=== PATIENT | male | born 1960 | race Caucasian/White ===

== ENCOUNTER 2016-07-30 16:23 | Inpatient (IN) | payer SELFPAY ==
[2016-07-30] VITALS (8 sets, daily range): BP systolic 138–168; BP diastolic 65–100; PULSE 74–85; RESP 14–23; TEMP 97.9–98.3; O2SAT 26–100
[~2016-07-30] VITALS: Ht 180.3 cm; Wt 86.2 kg
[2016-07-30] MEDS ORDERED: SODIUM CHLOR 0.9% 1000 ML INJ 1,000 ML IV SCH ×2 (16:26→17:58)
[2016-07-30] MEDS ORDERED: SODIUM CHLORIDE 0.9% FLUSH 10 ML FLUSH IVF PRN (16:30)
[2016-07-30 16:35] LABS: AUTOMATED NEUTROPHIL # 4.7 TH/MM3 (1.8-7.7); BASOPHIL # 0.1 TH/MM3 (0-0.2); BASOPHIL % 0.8 % (0.0-2.0); EOSINOPHIL # 0.2 TH/MM3 (0-0.4); EOSINOPHIL % 2.6 % (0.0-4.0); HEMATOCRIT 45.4 % (39.0-51.0); HEMO FLAGS DIFF FINAL; LYMPH % 23.2 % (9.0-44.0); LYMPHOCYTE # 1.8 TH/MM3 (1.0-4.8); MEAN CELL VOLUME 87.2 FL (80.0-100.0); MEAN CORPUSCULAR HEMOGLOBIN 29.1 PG (27.0-34.0); MEAN CORPUSCULAR HGB CONC 33.3 % (32.0-36.0); MONO % 10.4 % (0.0-8.0); PLATELET COUNT 248 TH/MM3 (150-450); RED BLOOD COUNT 5.21 MIL/MM3 (4.50-5.90); RED CELL DISTRIBUTION WIDTH 11.6 % (11.6-17.2); WHITE BLOOD COUNT 7.6 TH/MM3 (4.0-11.0)
--- NOTE | 2016-07-30 16:37 | PD ---
HPI Chief Complaint: Altered Mental Status Time Seen by Provider: 16:26 Travel History International Travel<30 days: No Contact w/Intl Traveler<30days: No History of Present Illness HPI This is a 56-year-old male who presents to the emergency department having been found by a family member on the front lawn with some difficulty walking and moving his arm. Prior to him being found the most recently he was seen was 9: 30 this morning by a family member. She noticed that he was walking unsteadily so she helped him get into the garage. No one has seen him since then. The patient does have a history of heavy alcohol use. PFSH Past Medical History Arthritis: No Asthma: No Autoimmune Disease: No Blood Disorders: No Anxiety: No Depression: No Heart Rhythm Problems: No Cancer: No High Cholesterol: No Chemotherapy: No Chest Pain: Yes Congestive Heart Failure: No COPD: No Cerebrovascular Accident: No Diabetes: No Diminished Hearing: No GERD: Yes Glaucoma: No Headaches: Yes Hepatitis: Yes Hiatal Hernia: No Hypertension: No Kidney Stones: No Myocardial Infarction: Yes Radiation Therapy: No Renal Failure: No Seizures: Yes (ETOH) Sickle Cell Disease: No Sleep Apnea: No Thyroid Disease: No Ulcer: No Past Surgical History Abdominal Surgery: No AICD: No Cardiac Surgery: No Ear Surgery: No Endocrine Surgery: No Eye Surgery: No Genitourinary Surgery: No Gynecologic Surgery: No Oral Surgery: No Pacemaker: No Thoracic Surgery: No Social History Alcohol Use: Yes (beer case a day 02/06/04 am) Tobacco Use: Yes (nonfilter one pack a day last one before he got knocked out) Substance Use: Yes (DRINKS BEER. ) Allergies-Medications (Allergen,Severity, Reaction): Coded Allergies: No Known Allergies (Verified , 07/30/16) Reported Meds & Prescriptions Reported Meds & Active Scripts Active No Active Prescriptions or Reported Medications Review of Systems ROS Limitations: Speech Impaired Physical Exam Narrative GENERAL: Disheveled SKIN: Abrasions on the bilateral upper extremities HEAD: Atraumatic. Normocephalic. EYES: Pupils equal and round. No injection or drainage. ENT: Moist mucous membranes NECK: Trachea midline. CARDIOVASCULAR: Regular rate and rhythm. No murmur appreciated. RESPIRATORY: Clear to auscultation. Breath sounds equal bilaterally. GASTROINTESTINAL: Abdomen soft, non-tender, nondistended. MUSCULOSKELETAL: No obvious deformities. NEUROLOGICAL: Awake and alert. Left facial droop, left upper extremity weakness moving but not off the bed, able to move the left leg but not off the bed. Right sided gaze deviation with left-sided neglect. PSYCHIATRIC: Appropriate mood and affect; insight and judgment normal. Data Data Last Documented VS Vital Signs Date Time Temp Pulse Resp B/P Pulse Ox O2 Delivery O2 Flow Rate FiO2 07/30/16 17:00 81 18 149/94 97 Nasal Cannula 2 07/30/16 16:25 98.3 Orders Electrocardiogram (07/30/16 16:26) Complete Blood Count With Diff (07/30/16 16:26) Comprehensive Metabolic Panel (07/30/16 16:26) Prothrombin Time / Inr (Pt) (07/30/16 16:26) Act Partial Throm Time (Ptt) (07/30/16 16:26) Troponin I (07/30/16 16:26) Urinalysis - C+S If Indicated (07/30/16 16:26) Ct Brain W/O Iv Contrast(Rout) (07/30/16 16:26) Blood Glucose (07/30/16 16:26) Ecg Monitoring (07/30/16 16:26) Iv Access Insert/Monitor (07/30/16 16:26) Oximetry (07/30/16 16:26) Sodium Chloride 0.9% Flush (Ns Flush) (07/30/16 16:30) Sodium Chlor 0.9% 1000 Ml Inj (Ns 1000 M (07/30/16 16:26) Drug Screen, Random Urine (07/30/16 16:26) Alcohol (Ethanol) (07/30/16 16:26) Ct Cerv Spine W/O Contrast (07/30/16 ) Mri Brain W/O Contrast (07/30/16 ) Mra Brain W/O Contrast (Cow) (07/30/16 17:12) Mra Carotids W Contrast (07/30/16 17:12) Admit Order (Ed Use Only) (07/30/16 17:20) Labs Laboratory Tests Test 07/30/16 07/30/16 16:20 16:55 White Blood Count 7.6 TH/MM3 Red Blood Count 5.21 MIL/MM3 Hemoglobin 15.1 GM/DL Hematocrit 45.4 % Mean Corpuscular Volume 87.2 FL Mean Corpuscular Hemoglobin 29.1 PG Mean Corpuscular Hemoglobin 33.3 % Concent Red Cell Distribution Width 11.6 % Platelet Count 248 TH/MM3 Mean Platelet Volume 8.0 FL Neutrophils (%) (Auto) 63.0 % Lymphocytes (%) (Auto) 23.2 % Monocytes (%) (Auto) 10.4 % Eosinophils (%) (Auto) 2.6 % Basophils (%) (Auto) 0.8 % Neutrophils # (Auto) 4.7 TH/MM3 Lymphocytes # (Auto) 1.8 TH/MM3 Monocytes # (Auto) 0.8 TH/MM3 Eosinophils # (Auto) 0.2 TH/MM3 Basophils # (Auto) 0.1 TH/MM3 CBC Comment DIFF FINAL Differential Comment Prothrombin Time 12.2 SEC Prothromb Time International 1.1 RATIO Ratio Activated Partial 29.6 SEC Thromboplast Time Sodium Level 136 MEQ/L Potassium Level 4.1 MEQ/L Chloride Level 102 MEQ/L Carbon Dioxide Level 27.1 MEQ/L Anion Gap 7 MEQ/L Blood Urea Nitrogen 11 MG/DL Creatinine 0.93 MG/DL Estimat Glomerular Filtration 84 ML/MIN Rate Random Glucose 124 MG/DL Calcium Level 9.1 MG/DL Total Bilirubin 0.3 MG/DL Aspartate Amino Transf 15 U/L (AST/SGOT) Alanine Aminotransferase 24 U/L (ALT/SGPT) Alkaline Phosphatase 59 U/L Troponin I LESS THAN 0.02 NG/ML Total Protein 7.7 GM/DL Albumin 3.7 GM/DL Ethyl Alcohol Level LESS THAN 3 MG/DL Urine Color YELLOW Urine Turbidity CLEAR Urine pH 6.0 Urine Specific [place] 1.018 Urine Protein NEG mg/dL Urine Glucose (UA) NEG mg/dL Urine Ketones NEG mg/dL Urine Occult Blood NEG Urine Nitrite NEG Urine Bilirubin NEG Urine Leukocyte Esterase NEG Urine WBC 0-2 /hpf Urine Squamous Epithelial 0-5 /hpf Cells Microscopic Urinalysis Comment CATH-CULT NOT IND Urine Opiates Screen NEG Urine Barbiturates Screen NEG Urine Amphetamines Screen NEG Urine Benzodiazepines Screen NEG Urine Cocaine Screen NEG Urine Cannabinoids Screen NEG MDM Medical Decision Making Medical Screen Exam Complete: Yes Emergency Medical Condition: Yes Interpretation(s) Afebrile, no tachycardia, hypertensive No leukocytosis Electrolytes are reassuring Troponin is normal Alcohols negative Urine drug screen is negative Urinalysis is negative for infection Last [address] 07/30/16 1626 Signed Impressions: Service Date/Time: July 16:23 - CONCLUSION: 1. The total abnormality which may reflect thrombosed vessel, localized subarachnoid hemorrhage or artifact in the posterior right temporal region. MRI is recommended for further evaluation if clinically indicated. Min Vera MD Cervical Spine CT 07/30/16 0000 Signed Impressions: Service Date/Time: July 16:23 - CONCLUSION: Mild cervical kyphosis with degenerative disc disease at multiple levels, most severe at C6-C7. No acute cervical spine abnormality is identified. Juan Diego Barbour MD Differential Diagnosis Ischemic stroke, hemorrhagic stroke, subdural hematoma, epidural hematoma, seizure, tumor Narrative Course This is a 56-year-old male who presents to the emergency department with left- sided weakness and left-sided neglect. It's unclear when he was last seen normal as he was seen this morning at 9:30 AM but at that time he was unsteady on his feet. Patient has a history of alcoholism. He was placed on a monitor and an IV was established. He was emergently transported to CT where he was found to have no intracranial hemorrhage. He does have an abnormality which I suspect is a thrombosed vessel. He is not a TPA candidate given the time of onset of his symptoms. Labs are all reassuring. Patient will be admitted for MRI and neurology consultation. I did speak to Dr. Lewis and inform her of the patient. Physician Communication Physician Communication Discussed with Dr. Zhao and Dr. Lewis Diagnosis Primary Impression: Stroke Qualified Code: I63.9 - Cerebrovascular accident (CVA), unspecified mechanism Admitting Information Admitting Physician Requests: Admit Scripts No Active Prescriptions or Reported Meds Mitra Meyers MD Jul 30, 2016 16:37
[2016-07-30 16:44] LABS: CHLORIDE 102 MEQ/L (98-107); POTASSIUM 4.1 MEQ/L (3.5-5.1); SODIUM (NA) 136 MEQ/L (136-145)
--- NOTE | 2016-07-30 16:46 | RADHPO ---
EXAM DATE/TIME: 07/30/2016 16:23 [facility] COMPARISON: No previous studies available for comparison. INDICATIONS : Altered mental status. Found unresponsive. RADIATION DOSE: 67.90 CTDIvol (mGy) MEDICAL HISTORY : Non-responsive. SURGICAL HISTORY : Non-responsive. ENCOUNTER: Initial ACUITY: 1 day PAIN SCALE: Non-responsive LOCATION: cranial TECHNIQUE: Multiple contiguous axial images were obtained of the head. Using automated exposure control and adj ustment of the mA and/or kV according to patient size, radiation dose was kept as low as reasonably a chievable to obtain optimal diagnostic quality images. FINDINGS: Noncontrast axial head CT demonstrates the ventricles to be normal in size and configuration with a n ormal sulcal pattern. No acute intracranial hemorrhage, acute cortical infarction, mass or midline sh ift is seen. There is old lacunar infarct involving the right basal ganglia. There is linear density just nature the right lateral ventricle of uncertain etiology. Whether this reflects a thrombosed ves wendi, localized subarachnoid hemorrhage or is artifactual is uncertain. MRI is recommended for further evaluation if clinically indicated. Posterior fossa structures are unremarkable. Bone windows are unremarkable. CONCLUSION: 1. The total abnormality which may reflect thrombosed vessel, localized subarachnoid hemorrhage or ar tifact in the posterior right temporal region. MRI is recommended for further evaluation if clinicall y indicated. Min Vera MD on July 30, 2016 at 16:40 Board Certified Radiologist. This report was verified electronically.
[2016-07-30 16:47] LABS: ANION GAP 7 MEQ/L (5-15); BICARBONATE 27.1 MEQ/L (21.0-32.0)
[2016-07-30 16:48] LABS: BLOOD UREA NITROGEN 11 MG/DL (7-18)
[2016-07-30 16:49] LABS: APTT (PATIENT) 29.6 SEC (24.3-30.1); INTERNATIONAL NORMALIZED RATIO 1.1 RATIO; PROTHROMBIN TIME - PATIENT 12.2 SEC (9.8-11.6)
[2016-07-30 16:50] LABS: ALT (GPT) 24 U/L (12-78); AST (GOT) 15 U/L (15-37)
[2016-07-30 16:51] LABS: GLOMERULAR FILTRATION RATE 84 ML/MIN (>89)
[2016-07-30 16:52] LABS: TOTAL BILIRUBIN ADULT 0.3 MG/DL (0.2-1.0)
[2016-07-30 16:53] LABS: ALKALINE PHOSPHATASE 59 U/L (45-117)
--- NOTE | 2016-07-30 16:53 | RADHPO ---
EXAM DATE/TIME: 07/30/2016 16:23 [facility] COMPARISON: No previous studies available for comparison. INDICATIONS : Altered mental status. Found unresponsive. RADIATION DOSE: 26.61 CTDIvol (mGy) MEDICAL HISTORY : Non-responsive. SURGICAL HISTORY : Non-responsive. ENCOUNTER: Initial ACUITY: 1 day PAIN SCALE: Non-responsive LOCATION: neck TECHNIQUE: Volumetric scanning of the cervical spine was performed. Multiplanar reconstructions in the sagittal, coronal and oblique axial planes were performed. Using automated exposure control and adjustment o f the mA and/or kV according to patient size, radiation dose was kept as low as reasonably achievable to obtain optimal diagnostic quality images. FINDINGS: VERTEBRAE: There is mild cervical kyphosis. No fracture is identified. ALIGNMENT: There is no anterolisthesis or retrolisthesis. The craniocervical junction and C1-C2 level demonstrate no acute finding. C2-C3: No disc herniation, canal stenosis, or neural foraminal stenosis is present. C3-C4: There is a mild diffuse disc bulge. However, no canal stenosis or neural foraminal narrowing is ident ified. C4-C5: There is a small posterior disc osteophyte complex, largest in left paracentral location. No canal st enosis or neural foraminal narrowing is appreciated. C5-C6: There is a diffuse posterior disc osteophyte complex. No spinal canal stenosis or neural foraminal na rrowing is identified. C6-C7: There is decreased disc height with endplate sclerosis and anterior endplate osteophytes. There are s mall posterior disc osteophyte complexes diffusely. No canal narrowing or neural foraminal narrowing is appreciated. C7-T1: No disc herniation, canal stenosis, or neural foraminal narrowing is identified. The visualized paraspinous structures demonstrate no acute finding. CONCLUSION: Mild cervical kyphosis with degenerative disc disease at multiple levels, most severe at C6-C7. No ac sumeet cervical spine abnormality is identified. Juan Diego Barbour MD on July 30, 2016 at 16:47 Board Certified Radiologist. This report was verified electronically.
[2016-07-30 17:10] LABS: BLOOD, URINE NEG (NEG); GLUCOSE,URINE NEG (NEG); KETONE, URINE NEG (NEG); NITRITE,URINE NEG (NEG)
[2016-07-30 17:17] LABS: AMPHETAMINE, URINE NEG (NEG); COMMENT (UR) CATH-CULT NOT IND; CULTURE IF INDICATED CATH CULTURE NOT IND; SQUAMOUS EPITHELIAL CELL URINE 0-5 /hpf (0-5); URINE COLOR YELLOW (YELLW/STRAW); WBC, URINE 0-2 /hpf (0-5)
[2016-07-30 17:26] LABS: BARBITURATES, URINE NEG (NEG)
[2016-07-30 17:29] LABS: COCAINE, URINE NEG (NEG)
--- NOTE | 2016-07-30 17:42 | HHI.HP ---
[facility] Primary Care Physician No Primary Care Physician Admission Diagnosis stroke Diagnoses: (1) Acute CVA (cerebrovascular accident) (2) Benign hypertension (3) Tobacco abuse counseling (4) Tobacco abuse (5) Alcohol abuse Chief Complaint: Alter mental status change Travel History International Travel<30 Days: No Contact w/Intl Traveler <30 Da: No Traveled to Known Affected Are: No History of Present Illness 56-year-old male with a history of alcohol abuse, tobacco abuse was brought to the ED for evaluation of acute onset of altered mental status change. Apparently patient was well this morning around 9:30AM , however when he was seen around 3PM by his friend ; he was staggering with an unsteady gait and speaking with some slurring of the speech. The last time patient had a drink was 2 days ago, however he has a history of alcohol abuse. He brought to the ED for AMS, however CT Head reveal The total abnormality which may reflect thrombosed vessel, localized subarachnoid hemorrhage or artifact in the posterior right temporal region. On exam he had a left-sided neglect. During my exam, patient was alert and oriented to self able to give his date of however with slurred speech. Most of the history was obtained from his friend who was present during the entire encounter Review of Systems ROS Limitations: Speech Impaired Other 12 systems reviewed and are negative except for the one mentioned in the history of present illness Past Family Social History Past Medical History GERD: Yes Headaches: Yes Hepatitis: Yes Myocardial Infarction: Yes Seizures: Yes (ETOH) Past Surgical History Abdominal Surgery: No AICD: No Cardiac Surgery: No Ear Surgery: No Endocrine Surgery: No Eye Surgery: No Genitourinary Surgery: No Gynecologic Surgery: No Oral Surgery: No Pacemaker: No Thoracic Surgery: No Reported Medications No Active Prescriptions or Reported Medications Allergies: Coded Allergies: No Known Allergies (Verified , 07/30/16) Social History Alcohol Use: Yes (beer case a day 02/06/04 am) Tobacco Use: Yes (nonfilter one pack a day last one before he got knocked out) Substance Use: Yes (DRINKS BEER. ) Physical Exam Vital Signs Vital Signs Date Time Temp Pulse Resp B/P Pulse Ox O2 Delivery O2 Flow Rate FiO2 07/30/16 17:35 97 Nasal Cannula 2 07/30/16 17:00 81 18 149/94 97 Nasal Cannula 2 07/30/16 16:25 98.3 85 18 143/86 96 07/30/16 16:25 85 18 96 Room Air Physical Exam GENERAL: NAD with sided neglect SKIN: No rashes, ecchymoses or lesions. Cool and dry. HEAD: Atraumatic. Normocephalic. No temporal or scalp tenderness. EYES: Pupils equal round and reactive. Extraocular motions intact. No scleral icterus. No injection or drainage. ENT: Nose without bleeding, purulent drainage or septal hematoma. Throat without erythema, tonsillar hypertrophy or exudate. Uvula midline. Airway patent. NECK: Trachea midline. No JVD or lymphadenopathy. Supple, nontender, no meningeal signs. CARDIOVASCULAR: Regular rate and rhythm without murmurs, gallops, or rubs. RESPIRATORY: Clear to auscultation. Breath sounds equal bilaterally. No wheezes , rales, or rhonchi. GASTROINTESTINAL: Abdomen soft, non-tender, nondistended. No hepato-splenomegaly , or palpable masses. No guarding. MUSCULOSKELETAL: Extremities without clubbing, cyanosis, or edema. Left sided neglect NEUROLOGICAL: left sided neglect with slurred speech Laboratory Laboratory Tests Test 07/30/16 07/30/16 16:20 16:55 White Blood Count 7.6 Red Blood Count 5.21 Hemoglobin 15.1 Hematocrit 45.4 Mean Corpuscular Volume 87.2 Mean Corpuscular Hemoglobin 29.1 Mean Corpuscular Hemoglobin 33.3 Concent Red Cell Distribution Width 11.6 Platelet Count 248 Mean Platelet Volume 8.0 Neutrophils (%) (Auto) 63.0 Lymphocytes (%) (Auto) 23.2 Monocytes (%) (Auto) 10.4 Eosinophils (%) (Auto) 2.6 Basophils (%) (Auto) 0.8 Neutrophils # (Auto) 4.7 Lymphocytes # (Auto) 1.8 Monocytes # (Auto) 0.8 Eosinophils # (Auto) 0.2 Basophils # (Auto) 0.1 CBC Comment DIFF FINAL Differential Comment Prothrombin Time 12.2 Prothromb Time International 1.1 Ratio Activated Partial 29.6 Thromboplast Time Sodium Level 136 Potassium Level 4.1 Chloride Level 102 Carbon Dioxide Level 27.1 Anion Gap 7 Blood Urea Nitrogen 11 Creatinine 0.93 Estimat Glomerular Filtration 84 Rate Random Glucose 124 Calcium Level 9.1 Total Bilirubin 0.3 Aspartate Amino Transf 15 (AST/SGOT) Alanine Aminotransferase 24 (ALT/SGPT) Alkaline Phosphatase 59 Troponin I LESS THAN 0.02 Total Protein 7.7 Albumin 3.7 Ethyl Alcohol Level LESS THAN 3 Urine Color YELLOW Urine Turbidity CLEAR Urine pH 6.0 Urine Specific [place] 1.018 Urine Protein NEG Urine Glucose (UA) NEG Urine Ketones NEG Urine Occult Blood NEG Urine Nitrite NEG Urine Bilirubin NEG Urine Leukocyte Esterase NEG Urine WBC 0-2 Urine Squamous Epithelial 0-5 Cells Microscopic Urinalysis Comment CATH-CULT NOT IND Urine Barbiturates Screen NEG Urine Amphetamines Screen NEG Urine Benzodiazepines Screen NEG Urine Cocaine Screen NEG Urine Cannabinoids Screen NEG Result Diagram: 07/30/16 1620 07/30/16 1620 Imaging Last Impressions Head CT 07/30/16 1626 Signed Impressions: Service Date/Time: July 16:23 - CONCLUSION: 1. The total abnormality which may reflect thrombosed vessel, localized subarachnoid hemorrhage or artifact in the posterior right temporal region. MRI is recommended for further evaluation if clinically indicated. Min Vera MD Cervical Spine CT 07/30/16 0000 Signed Impressions: Service Date/Time: July 16:23 - CONCLUSION: Mild cervical kyphosis with degenerative disc disease at multiple levels, most severe at C6-C7. No acute cervical spine abnormality is identified. Juan Diego Barbour MD Assessment and Plan Problem List: (1) Acute right MCA stroke ICD Code: I63.511 Status: Acute (2) Acute left hemiparesis ICD Code: G81.94 Status: Acute (3) Acute CVA (cerebrovascular accident) ICD Code: I63.9 Status: Acute (4) Tobacco abuse counseling ICD Code: Z71.6 Status: Acute (5) Alcohol abuse ICD Code: F10.10 Status: Acute (6) Tobacco abuse ICD Code: Z72.0 Status: Acute (7) Left-sided neglect ICD Code: R41.4 Status: Acute Assessment and Plan 56-year-old man with Acute CVA with left sided neglect: Treatment per stroke protocol -Continue with aspirin -Start statin therapy -NIHSS, Neuro checks, Monitor on telemetry -PT/OT/ST evaluations, consult rehab medicine -allow permissive HTN, IV Vasotec and IV labetalol if SBP >220 -Check lipid profile and HgbA1c -Check carotid U/S -Head CT 07/30/16 noted and review by me with finding of The total abnormality which may reflect thrombosed vessel, localized subarachnoid hemorrhage or artifact in the posterior right temporal region -Check brain MRI/MRA -Check echocardiogram and place Holter monitoring -Neurology consulted History of hypertension: We will allow for permissive hypertension Nicotinic dependence: Counseled to quit, place nicotine patch alcohol Abuse: Rally Pack, CIWA per protocol, Librium PRN DVT prophylaxis: Bilateral SCDs GI prophylaxis: PPI Code Status Full code Discussed Condition With Patient, friend, ED physician Physician Certification 2 Midnight Certification Type: Admission for Inpatient Services Order for Inpatient Services The services are ordered in accordance with Medicare regulations or non- Medicare payer requirements, as applicable. In the case of services not specified as inpatient-only, they are appropriately provided as inpatient services in accordance with the 2-midnight benchmark. Estimated LOS (days): 2 days is the estimated time the patient will need to remain in the hospital, assuming treatment plan goals are met and no additional complications. Post-Hospital Plan: Not yet determined Addison Zhao MD Jul 30, 2016 17:42
[2016-07-30] MEDS ORDERED: LORazepam 1 MG TAB PO PRN (18:00)
[2016-07-30] MEDS ORDERED: LORazepam 2 MG TAB PO PRN (18:00)
[2016-07-30] MEDS ORDERED: DEXTROSE 50% IN WATER 50 ML VIAL(D50) IV PUSH PRN (18:00)
[2016-07-30] MEDS ORDERED: FLUMAZENIL 0.5 MG/5 ML VIAL IV PUSH PRN (18:00)
[2016-07-30] MEDS ORDERED: LORazepam 2 MG/ML VIAL IV PUSH PRN ×4 (18:00)
[2016-07-30] MEDS ORDERED: ONDANSETRON HCL 4 MG/2 ML VIAL IV PRN (18:00)
[2016-07-30] MEDS ORDERED: RESP: ALBUTEROL 2.5 MG/IPRATROPIUM 0.5 MG NEB (PRN) NEB (18:00)
[2016-07-30] MEDS ORDERED: SODIUM CHLORIDE 0.9% FLUSH 10 ML FLUSH IV FLUSH PRN (18:00)
[2016-07-30] MEDS ORDERED: GLUCAGON 1 MG/ML VIAL IM/SQ PRN (18:00)
[2016-07-30] MEDS ORDERED: ENALAPRILAT 1.25 MG/ML VIAL IV PRN (18:00)
[2016-07-30] MEDS ORDERED: ASPIRIN 300 MG SUPP RECTAL ONE (18:15)
--- NOTE | 2016-07-30 19:23 | RADHPO ---
EXAM DATE/TIME: 07/30/2016 18:10 [facility] COMPARISON: CT BRAIN W/O CONTRAST, July 30, 2016, 16:23. INDICATIONS : Stroke. MEDICAL HISTORY : None. SURGICAL HISTORY : None. ENCOUNTER: Subsequent ACUITY: 1 day PAIN SCORE: 5/10 LOCATION: cranial TECHNIQUE: Multiplanar, multisequence MRI of the brain was performed without contrast. FINDINGS: There is restriction in diffusion capacity involving the right temporal lobe diffusely in additi on to right periventricular region in the region of the basal ganglia. There is no hemorrhage or mass effect. CONCLUSION: Acute infarction in the right temporal and periventricular regions involving parts of the basal gangl ia. No hemorrhage or mass effect. Sarah Mcintosh MD on July 30, 2016 at 19:18 Board Certified Radiologist. This report was verified electronically.
--- NOTE | 2016-07-30 19:31 | RADHPO ---
EXAM DATE/TIME: 07/30/2016 18:10 [facility] COMPARISON: MRI BRAIN W/O CONTRAST, July 30, 2016, 18:10. INDICATIONS : Stroke. MEDICAL HISTORY : None. SURGICAL HISTORY : None. ENCOUNTER: Subsequent ACUITY: 1 day PAIN SCORE: 5/10 LOCATION: cranial Please note a normal MRA of the brain does not entirely exclude the possibility of a small aneurysm, nor the possibility of distal intracranial vessel disease. TECHNIQUE: 3D time of flight MRA was performed. Source images, multiplanar STS MIP, and 3D volume MIP reconstru ctions were reviewed. FINDINGS: There is evidence of truncation involving the right M1 characteristic of acute thrombus. There is ath erosclerotic disease involving multiple branches bilaterally with high-grade stenosis of right PUNCH CARD OPERATOR. L eft A-1 appears hypoplastic. CONCLUSION: Complete occlusion of right M1 due to acute thrombus with high-grade stenosis of right PUNCH CARD OPERATOR. Sarah Mcintosh MD on July 30, 2016 at 19:27 Board Certified Radiologist. This report was verified electronically.
--- NOTE | 2016-07-30 20:12 | RADHPO ---
EXAM DATE/TIME: 07/30/2016 19:09 [facility] COMPARISON: MRA BRAIN W/O CONTRAST, July 30, 2016, 18:10. INDICATIONS : Stroke. CONTRAST: 20 cc Omniscan (gadodiamide) IV MEDICAL HISTORY : None. SURGICAL HISTORY : None. ENCOUNTER: Subsequent ACUITY: 1 day PAIN SCORE: 5/10 LOCATION: cranial Percent stenosis is calculated using the diameter of the stenotic region over the diameter of the nor mal distal internal carotid artery. TECHNIQUE: Bolus infused MRA of the extracranial circulation was performed using a neurovascular coil. Post pro cessing was performed including rotating subvolume maximum intensity projections of each carotid gretchen ry, rotating full volume maximum intensity projections of both carotid arteries, sagittal and coronal sliding thin slab reformations of each carotid artery, and left oblique sliding thin slab reformatio n through the aortic arch to include the origin of the arch branch vessels. FINDINGS: AORTIC ARCH: There is a three vessel origin of the great vessels from the aorta. No evidence of ostial narrowing. RIGHT CAROTID: There is mild atherosclerotic plaquing at the origin of the ICA without any significant stenosis. LEFT CAROTID: There is mild atherosclerotic plaquing at the origin of the ICA without any significant stenosis. VERTEBRALS: The left side is dominant and the right side is hypoplastic. 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 Sarah Mcintosh MD on July 30, 2016 at 20:07 Board Certified Radiologist. This report was verified electronically.
[2016-07-30] MEDS ORDERED: GADODIAMIDE PF 287 MG/ML 20 ML VIAL (for RAD MRI) IV ONE (20:34)
[2016-07-30] MEDS ORDERED: SODIUM CHLORIDE 0.9% FLUSH 10 ML FLUSH IV FLUSH SCH (21:00)
[2016-07-30] MEDS: INSULIN ASPART SUPPLEMENTAL SCALE SQ SCH (21:00)
[2016-07-30] MEDS: REMOVE OLD PATCH T-DERMAL SCH (21:00)
[2016-07-30 22:30] LABS: HEMOGLOBIN A1a 1.1 %; HEMOGLOBIN A1b 0.7 %; HEMOGLOBIN Ao 84.8 %; HEMOGLOBIN LA1C 2.3 %; HEMOGLOBIN P3 3.7 %
[2016-07-30] MEDS: NICOTINE 21 MG/24 HR PATCH T-DERMAL SCH (22:30)
[2016-07-30] MEDS: ACETAMINOPHEN 325 MG TAB PO PRN (22:48)
[2016-07-30] MEDS: ATORVASTATIN 10 MG TAB PO SCH (22:48)
[2016-07-31] VITALS (8 sets, daily range): BP systolic 114–163; BP diastolic 70–95; PULSE 70–94; RESP 12–20; TEMP 98.2–99; O2SAT 93–97
--- NOTE | 2016-07-31 06:05 | EKG ---
Date Performed: 07/30/2016 Time Performed: 16:43:26 PTAGE: 56 years EKG: Sinus rhythm Normal ECG NO PREVIOUS TRACING DOCTOR: Blane Lao Interpretating Date/Time 07/31/2016 06:04:20
[2016-07-31] MEDS: INSULIN ASPART SUPPLEMENTAL SCALE SQ SCH ×4 (06:22→20:55)
[2016-07-31] MEDS ORDERED: GLUCAGON 1 MG/ML VIAL IM/SQ PRN (09:00)
[2016-07-31] MEDS ORDERED: ASPIRIN 325 MG TAB PO SCH (09:00)
[2016-07-31] MEDS ORDERED: ASPIRIN 81 MG CHEW TAB PO SCH (09:00)
[2016-07-31] MEDS ORDERED: DEXTROSE 50% IN WATER 50 ML VIAL(D50) IV PUSH PRN (09:00)
[2016-07-31] MEDS ORDERED: SODIUM CHLORIDE 0.9% FLUSH 10 ML FLUSH IV FLUSH PRN (09:00)
--- NOTE | 2016-07-31 09:23 | MB ---
cc: BULMARO CAST M.D. DATE OF CONSULTATION: 07/31/2016 REASON FOR CONSULTATION Stroke. HISTORY OF PRESENT ILLNESS Mr. Venegas is a 56-year-old right-handed man with a history of alcohol abuse who was in his usual state of health until yesterday. He was last seen normal yesterday around 9:30 in the morning. He was then again seen at 3 o'clock in the afternoon by his friend, very confused with a staggering gait and slurred speech and was brought to the emergency room. Because of the indeterminate time of onset he was not a candidate for thrombolytic therapy or intervention. He has been found to have left-sided neglect with some left-sided weakness and slurred speech. PAST MEDICAL HISTORY No history of stroke in the past but he did have a history of alcohol-related seizures, alcohol abuse in the past. MEDICATIONS Medicines at home are none. ALLERGIES None known. SOCIAL HISTORY He drinks a case of beer every day. He does smoke. There is no listed history of drug abuse. NEUROLOGIC EXAMINATION His vital signs reveal a blood pressure of 141/83, pulse 76 and regular. His telemetry is normal sinus rhythm. Respiratory rate is 19. Temperature 98 degrees. Higher cortical function: He is lethargic but arousable. He can follow simple commands. Speech is dysarthric but not aphasic. He has left-sided neglect. 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 He tends to have a right gaze preference but is able to move eyes past midline to the left. Pupils equal and reactive. Other cranial nerves normal. Motor exam: He is weak in the left arm and left leg rated at 4/5 proximally and distally with normal strength on the right. Reflexes are 2+ symmetric with Babinski on the left. IMAGING CT scan of the brain shows a linear hyperdensity in the right lateral ventricle, uncertain etiology. Old lacunar stroke is seen in the right basal ganglia. MRI of the brain shows an acute infarction without hemorrhage involving the right temporal and periventricular regions and basal ganglia in the distribution of the right MCA. MR angiogram of the head reveals complete occlusion of the right M1 segment. MRA of the neck reveals no evidence of any significant carotid artery stenosis. There is mild plaquing. He has a hypoplastic right vertebral artery. CT cervical spine: Mild kyphosis with degenerative disc disease, most severe C6-C7. LABORATORY White count 7600, hemoglobin 15.1, hematocrit 45%, platelets 248,000. PT 12.2, INR 1.1, APTT 30. Sodium 136, potassium 4.1, chloride 102, CO2 27, BUN 11, creatinine 0.9, GFR 84, glucose 124, AST 15, ALT 24. Lipid panel pending. Toxicology screen negative. Urinalysis is normal. EKG EKG is sinus rhythm. 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 RECOMMENDATIONS Continue aspirin. Will change that to 325 mg daily. He did pass a swallow eval. Continue to monitor his cardiac telemetry, rule out atrial fibrillation. Follow-up on a lipid panel. Will also obtain an echocardiogram. I would like to get a hypercoagulable work-up because of his relative young age. Consult rehab medicine as well. I agree that the patient was not a candidate for TPA given the time of onset and also not a candidate for intervention given the indeterminate time of onset and duration of symptoms. Thank you for asking us to see this patient in consultation. MD CATHY Kline/TAWNY /8:46 AM /9:10 AM
[2016-07-31 09:39] LABS: HDL CHOLESTEROL 26.6 MG/DL (40.0-60.0)
--- NOTE | 2016-07-31 09:43 | HHI.PR ---
Subjective Remarks Follow-up acute right MCA CVA with left-sided neglect 07/31/16-patient seen and examined, he did past swallow eval.Lethargic this AM however arousable. Currently afebrile Objective Vitals Vital Signs Date Time Temp Pulse Resp B/P Pulse Ox O2 Delivery O2 Flow Rate FiO2 07/31/16 08:00 95 Nasal Cannula 2.00 07/31/16 08:00 94 07/31/16 07:57 97 Nasal Cannula 2.00 07/31/16 04:00 76 19 141/83 95 07/31/16 00:00 98.4 70 17 132/70 97 07/30/16 23:38 20 07/30/16 23:00 79 07/30/16 23:00 74 18 138/83 97 07/30/16 22:37 80 23 168/89 98 07/30/16 22:35 97.9 82 22 161/100 26 07/30/16 22:03 95 Nasal Cannula 2.00 07/30/16 20:08 74 14 151/65 99 Nasal Cannula 2 07/30/16 20:05 100 Nasal Cannula 4.00 07/30/16 18:17 97 Nasal Cannula 2.00 07/30/16 17:35 97 Nasal Cannula 2 07/30/16 17:00 81 18 149/94 97 Nasal Cannula 2 07/30/16 16:25 98.3 85 18 143/86 96 07/30/16 16:25 85 18 96 Room Air I/O 07/30/16 07/30/16 07/30/16 07/31/16 07/31/16 07/31/16 07:00 15:00 23:00 07:00 15:00 23:00 Intake Total 1030 ml 521 ml Output Total 300 ml 350 ml Balance 730 ml 171 ml Intake Oral 30 ml 0 ml IV Total 1000 ml 521 ml Output Urine Total 300 ml 350 ml # Voids 2 # Bowel Movements 0 0 Result Diagram: 07/30/16 1620 07/30/16 162 Imaging Last Impressions Neck Magnetic Resonance Angiography 07/30/16 171 Signed Impressions: Service Date/Time: July 19:09 - CONCLUSION: Hypoplastic right vertebral artery and slight atherosclerotic plaquing of bilateral ICAs. 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 Sarah Mcintosh MD Head CT 07/30/16 1626 Signed Impressions: Service Date/Time: July 16:23 - CONCLUSION: 1. The total abnormality which may reflect thrombosed vessel, localized subarachnoid hemorrhage or artifact in the posterior right temporal region. MRI is recommended for further evaluation if clinically indicated. Min Vera MD Cervical Spine CT 07/30/16 0000 Signed Impressions: Service Date/Time: July 16:23 - CONCLUSION: Mild cervical kyphosis with degenerative disc disease at multiple levels, most severe at C6-C7. No acute cervical spine abnormality is identified. Juan Diego Barbour MD Brain MRI 07/30/16 0000 Signed Impressions: Service Date/Time: July 18:10 - CONCLUSION: Acute infarction in the right temporal and periventricular regions involving parts of the basal ganglia. No hemorrhage or mass effect. Sarah Mcintosh MD Objective Remarks GENERAL: [id number] SKIN: Warm and dry. HEAD: Normocephalic. EYES: No scleral icterus. No injection or drainage. NECK: Supple, trachea midline. No JVD or lymphadenopathy. CARDIOVASCULAR: Regular rate and rhythm without murmurs, gallops, or rubs. RESPIRATORY: Breath sounds equal bilaterally. No accessory muscle use. GASTROINTESTINAL: Abdomen soft, non-tender, nondistended. MUSCULOSKELETAL: No cyanosis, or edema. Neuro: Left-sided hemiparesis with left-side neglect BACK: Nontender without obvious deformity. No CVA tenderness. A/P Problem List: (1) Acute CVA (cerebrovascular accident) ICD Code: I63.9 Status: Acute (2) Benign hypertension ICD Code: I10 Status: Acute (3) Tobacco abuse counseling ICD Code: Z71.6 Status: Acute (4) Tobacco abuse ICD Code: Z72.0 Status: Acute (5) Alcohol abuse ICD Code: F10.10 Status: Acute (6) Acute right MCA stroke ICD Code: I63.511 Status: Acute (7) Acute left hemiparesis ICD Code: G81.94 Status: Acute (8) Left-sided neglect ICD Code: R41.4 Status: Acute Assessment and Plan 56-year-old man with Acute CVA with left sided neglect: Treatment per stroke protocol -Continue with aspirin -On statin therapy -NIHSS, Neuro checks, Monitor on telemetry -PT/OT/ST evaluations, consult rehab medicine -allow permissive HTN, IV Vasotec and IV labetalol if SBP >220 - lipid profile and HgbA1c -Check carotid U/S -Head CT 07/30/16 with finding of The total abnormality which may reflect thrombosed vessel, localized subarachnoid hemorrhage or artifact in the posterior right temporal region - brain MRI/MRA as well as neck MRA noted -Check echocardiogram and Holter monitoring -Neurology input appreciated pending hypercoagulable studies History of hypertension: Continue permissive hypertension Nicotinic dependence: Counseled to quit,on nicotine patch alcohol Abuse: Rally Pack, CIWA per protocol, Librium PRN DVT prophylaxis: Bilateral SCDs GI prophylaxis: PPI Addison Zhao MD Jul 31, 2016 09:43
--- NOTE | 2016-07-31 09:47 | RADHPO ---
EXAM DATE/TIME: 07/31/2016 12:42 [facility] COMPARISON: No previous studies available for comparison. INDICATIONS : Cerebrovascular accident. MEDICAL HISTORY : Emphysema. Left eye cataract. Seizures. Head trauma. Numbness. Heart attack . Chest pain. GERD. Hepatitis. Substance use. SURGICAL HISTORY : None. ENCOUNTER: Initial ACUITY: 1 day PAIN SCORE: 0/10 LOCATION: Bilateral neck PEAK SYSTOLIC VELOCITIES (cm/sec): ICA/CCA RATIO: Right: 0.6 Left: 0.8 ICA: Right: 61 Left: 80 CCA: Right: 95 Left: 104 ECA: Right: 91 Left: 104 VERTEBRAL: Right: 25 antegrade Left: 51 antegrade Elevated flow velocities and ICA/CCA ratios have been found to correlate with increased degrees of vessel stenosis, calculated as percentage of diameter relative to a normal segment of distal ICA/CCA FINDINGS: RIGHT CAROTID: There is no evidence for a hemodynamically significant carotid stenosis. Minimal int imal hyperplasia is present with scattered calcific plaque. LEFT CAROTID: There is no evidence for a hemodynamically significant carotid stenosis. Minimal inti mal hyperplasia is present with scattered calcific plaque. VERTEBRAL ARTERIES: Flow is antegrade in both vertebral arteries. MISCELLANEOUS: There are no ancillary masses or adenopathy. CONCLUSION: Mild plaque on the right. Negative examination for a hemodynamically significant carotid stenosis. Beto Shannon MD FACR Board Certified Radiologist. This report was verified electronically.
[2016-07-31] MEDS: SODIUM CHLORIDE 0.9% FLUSH 10 ML FLUSH IV FLUSH SCH ×2 (10:23→20:51)
[2016-07-31] MEDS: SODIUM CHLOR 0.9% 1000 ML INJ 1,000 ML IV SCH (10:24)
[2016-07-31] MEDS: THIAMINE HCL 100 MG TAB PO SCH (10:25)
[2016-07-31] MEDS: MULTIVITAMINS/MINERALS THERAPEUTIC TAB PO SCH (10:25)
[2016-07-31] MEDS: FOLIC ACID 1 MG TAB PO SCH (10:25)
[2016-07-31] MEDS: ASPIRIN 325 MG TAB PO SCH (10:25)
[2016-07-31] MEDS: NICOTINE 21 MG/24 HR PATCH T-DERMAL SCH (10:26)
[2016-07-31] MEDS: ACETAMINOPHEN 325 MG TAB PO PRN ×2 (13:53→14:53)
[2016-07-31 15:10] LABS: HEMOGLOBIN A1a 1.1 %; HEMOGLOBIN A1b 0.7 %; HEMOGLOBIN F 1.1 %; HEMOGLOBIN LA1C 2.2 %; HEMOGLOBIN P3 3.6 %
--- NOTE | 2016-07-31 15:34 | EC ---
Study Study Date:07/31/2016 STUDY CONCLUSIONS SUMMARY - Left ventricle: The cavity size was normal. Wall thickness was normal. Systolic function was normal. The estimated ejection fraction was 60%. Wall motion was normal; there were no regional wall motion abnormalities. - Tricuspid valve: Mild regurgitation. If LV function is below 40, please consider prescribing an ACEI or ARB or document rationale for non-use. PROCEDURE DATA STUDY STATUS: Elective. Procedure: Transthoracic echocardiography. Image quality was good. Scanning was performed from the parasternal, apical, and subcostal acoustic windows. Study completion: The patient tolerated the procedure well. Transthoracic echocardiography. M-mode, complete 2D, complete spectral Doppler, and color Doppler. Weight: Weight: 192.6lb. Patient status: Inpatient. CARDIAC ANATOMY LEFT VENTRICLE: The cavity size was normal. Wall thickness was normal. Systolic function was normal. The estimated ejection fraction was 60%. Wall motion was normal; there were no regional wall motion abnormalities. AORTIC VALVE: Trileaflet; normal thickness leaflets. Doppler: Transvalvular velocity was within the normal range. There was no stenosis. No regurgitation. Valve area: 2.81cm^2 (Vmax). AORTA: Aortic root: The aortic root was trivially dilated. MITRAL VALVE: Structurally normal valve. Doppler: Transvalvular velocity was within the normal range. There was no evidence for stenosis. No regurgitation. LEFT ATRIUM: The atrium was normal in size. RIGHT VENTRICLE: The cavity size was normal. Wall thickness was normal. PULMONIC VALVE: Doppler: Transvalvular velocity was within the normal range. There was no evidence for stenosis. No regurgitation. TRICUSPID VALVE: Structurally normal valve. Doppler: Transvalvular velocity was within the normal range. Mild regurgitation. PULMONARY ARTERY: The main pulmonary artery was normal-sized. Systolic pressure was within the normal range. RIGHT ATRIUM: The atrium was normal in size. PERICARDIUM: There was no pericardial effusion. SYSTEMIC VEINS: Inferior vena cava: The vessel was normal in size. Patient weight: 192.6lb _Ejection fraction:_ 65-75% _Fractional shortening:_ 32% up to 5Kg 5-11.5Kg 11.6-22.9Kg 23-45Kg 45-57Kg Aortic Root 7-13 <17 13-22 17-27 17-27 LA diam 6-13 <23 24-38 33-47 37-40 RVID 10-17 7-15 7-15 7-18 8-17 LVIDd 12-22 <32 24-38 33-47 37-40 LVPW 2-4 3-6 5-7 6-8 7-8 IVS 2-4 3-6 5-7 6-8 7-8 BASIC MEASUREMENTS ADULT NORMAL Left ventricle LV internal dimension, ED, chordal level, 45.1 mm 43-52 PLAX LV internal dimension, ES, chordal level, 34.9 mm 23-38 PLAX Fractional shortening, chordal level, PLAX *23 % >29 LV posterior wall thickness, ED 9.59 mm IVS/LVPW ratio, ED 1 <1.3 Ventricular septum Septal thickness, ED 9.63 mm Aortic valve Leaflet separation 23 mm 15-26 BASIC MEASUREMENTS ADULT NORMAL Aortic valve Leaflet separation 23 mm 15-26 Aorta Root diameter, ED *38 mm 20-37 Left atrium Anterior-posterior dimension, ES 33 mm 19-40 LA/aortic root ratio 0.87 DOPPLER MEASUREMENTS ADULT NORMAL Main pulmonary artery Pressure, S 27 mm Hg =30 Aortic valve Peak velocity, S 107 cm/s Valve area, Vmax 2.81 cm^2 Mitral valve Peak E-wave velocity 54.8 cm/s Peak A-wave velocity 68.6 cm/s Deceleration time *236 ms 150-230 Peak E/A ratio 0.8 Tricuspid valve Regurgitant peak velocity 205 cm/s Peak RV-RA gradient, S 17 mm Hg Maximal regurgitant velocity 205 cm/s Systemic veins Estimated CVP 10 mm Hg Right ventricle RV pressure, S *30 mm Hg <30 Pulmonic valve Peak velocity, S 81.4 cm/s LEGEND: Mean values are shown as u=mean value. Asterisk (*) living[place] values outside specified normal range. Prepared and signed by Shani Marin [id number]
[2016-07-31] MEDS: ATORVASTATIN 10 MG TAB PO SCH (20:51)
[2016-07-31] MEDS: REMOVE OLD PATCH T-DERMAL SCH (21:00)
[2016-08-01] VITALS (12 sets, daily range): BP systolic 128–142; BP diastolic 71–81; PULSE 72–82; RESP 10–23; TEMP 97.6–99.2; O2SAT 93–98
[2016-08-01] MEDS: SODIUM CHLOR 0.9% 1000 ML INJ 1,000 ML IV SCH (01:56)
[2016-08-01] MEDS: SODIUM CHLORIDE 0.9% FLUSH 10 ML FLUSH IV FLUSH SCH ×2 (08:58→20:23)
[2016-08-01] MEDS: THIAMINE HCL 100 MG TAB PO SCH (08:58)
[2016-08-01] MEDS: FOLIC ACID 1 MG TAB PO SCH (08:58)
[2016-08-01] MEDS: NICOTINE 21 MG/24 HR PATCH T-DERMAL SCH (08:58)
[2016-08-01] MEDS: MULTIVITAMINS/MINERALS THERAPEUTIC TAB PO SCH (08:58)
[2016-08-01] MEDS: ASPIRIN 325 MG TAB PO SCH (08:58)
--- NOTE | 2016-08-01 11:09 | HHI.PR ---
Subjective Remarks Follow-up acute right MCA CVA with left-sided neglect 07/31/16-patient seen and examined, he did past swallow eval.Lethargic this AM however arousable. Currently afebrile 08/01/16-patient seen and examined, much more alert and oriented to self, states he didn't have good night sleep. Patient is much more aware of his left side able to bend upper and lower extremities and responded to proprioceptive touch Objective Vitals Vital Signs Date Time Temp Pulse Resp B/P Pulse Ox O2 Delivery O2 Flow Rate FiO2 08/01/16 08:00 96 Room Air 08/01/16 08:00 98.7 76 19 134/77 96 08/01/16 08:00 77 08/01/16 07:30 94 21 08/01/16 04:00 98.3 76 19 128/71 93 08/01/16 00:00 98.0 80 16 134/81 94 07/31/16 20:16 96 21 07/31/16 20:00 96 Room Air 07/31/16 20:00 98.7 82 20 163/95 97 07/31/16 20:00 82 07/31/16 16:00 99.0 78 12 114/92 96 07/31/16 14:53 19 07/31/16 12:00 98.2 78 19 119/73 93 I/O 07/31/16 07/31/16 07/31/16 08/01/16 08/01/16 08/01/16 07:00 15:00 23:00 07:00 15:00 23:00 Intake Total 521 ml 949 ml 1120 ml 510 ml Output Total 350 ml 350 ml 350 ml 1000 ml Balance 171 ml 599 ml 770 ml -490 ml Intake Oral 0 ml 360 ml 320 ml 10 ml Oral Supplement 0 ml IV Total 521 ml 589 ml 800 ml 500 ml Output Urine Total 350 ml 350 ml 350 ml 1000 ml # Bowel Movements 0 0 0 Result Diagram: 07/30/16 1620 07/30/16 162 Imaging Last Impressions Carotid Artery Ultrasound 07/31/16 0000 Signed Impressions: Service Date/Time: Sunday, July 31, 2016 12:42 - CONCLUSION: Mild plaque on the right. Negative examination for a hemodynamically significant carotid stenosis. Beto Shannon MD Neck Magnetic Resonance Angiography 07/30/16 1712 Signed Impressions: Service Date/Time: July 19:09 - CONCLUSION: Hypoplastic right vertebral artery and slight atherosclerotic plaquing of bilateral ICAs. 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 Sarah Mcintosh MD Head CT 07/30/16 1626 Signed Impressions: Service Date/Time: July 16:23 - CONCLUSION: 1. The total abnormality which may reflect thrombosed vessel, localized subarachnoid hemorrhage or artifact in the posterior right temporal region. MRI is recommended for further evaluation if clinically indicated. Min Vera MD Cervical Spine CT 07/30/16 0000 Signed Impressions: Service Date/Time: July 16:23 - CONCLUSION: Mild cervical kyphosis with degenerative disc disease at multiple levels, most severe at C6-C7. No acute cervical spine abnormality is identified. Juan Diego Barbour MD Brain MRI 07/30/16 0000 Signed Impressions: Service Date/Time: July 18:10 - CONCLUSION: Acute infarction in the right temporal and periventricular regions involving parts of the basal ganglia. No hemorrhage or mass effect. Sarah Mcintosh MD Objective Remarks GENERAL: NAD SKIN: Warm and dry. HEAD: Normocephalic. EYES: No scleral icterus. No injection or drainage. NECK: Supple, trachea midline. No JVD or lymphadenopathy. CARDIOVASCULAR: Regular rate and rhythm without murmurs, gallops, or rubs. RESPIRATORY: Breath sounds equal bilaterally. No accessory muscle use. GASTROINTESTINAL: Abdomen soft, non-tender, nondistended. MUSCULOSKELETAL: No cyanosis, or edema. Neuro: left side weakness BACK: Nontender without obvious deformity. No CVA tenderness. A/P Problem List: (1) Acute right MCA stroke ICD Code: I63.511 Status: Acute (2) Acute left hemiparesis ICD Code: G81.94 Status: Acute (3) Acute CVA (cerebrovascular accident) ICD Code: I63.9 Status: Acute (4) Tobacco abuse counseling ICD Code: Z71.6 Status: Acute (5) Alcohol abuse ICD Code: F10.10 Status: Acute (6) Tobacco abuse ICD Code: Z72.0 Status: Acute Assessment and Plan 56-year-old man with Acute CVA with left sided neglect: Treatment per stroke protocol -Continue with aspirin -On statin therapy -NIHSS, Neuro checks, Monitor on telemetry -PT/OT/ST evaluations, consult rehab medicine -d/c permissive HTN, IV Vasotec and IV labetalol if SBP >220 - LDL 119 and HgA1C 5.8 -carotid U/S noted -Head CT 07/30/16 with finding of The total abnormality which may reflect thrombosed vessel, localized subarachnoid hemorrhage or artifact in the posterior right temporal region - brain MRI/MRA as well as neck MRA noted - echocardiogram with EF of 60% and Holter monitoring -Neurology input appreciated pending hypercoagulable studies History of hypertension: d/c permissive hypertension Nicotinic dependence: Counseled to quit,on nicotine patch alcohol Abuse: Rally Pack, CIWA per protocol, Librium PRN DVT prophylaxis: Bilateral SCDs GI prophylaxis: PPI Transfer to Addison Santana MD Aug 01, 2016 11:09
[2016-08-01] MEDS ORDERED: ACETAMINOPHEN/HYDROcodone 325 MG/5 MG TAB PO ONE (20:00)
[2016-08-01] MEDS: REMOVE OLD PATCH T-DERMAL SCH (20:23)
[2016-08-01] MEDS: ATORVASTATIN 10 MG TAB PO SCH (20:25)
--- NOTE | 2016-08-01 20:47 | HHI.PR ---
Review/Management Diagnosis right MCA stroke Plan continue aspirin and statin PT/OT/speech therapy Diagnosis/Plan: Subjective Subjective Comments No acute events reported Active Medications Current Medications Medications (Trade) Dose Ordered Sig/Jeanette Route Start Time Stop Time Status Last Admin (Vasotec Inj) 1.25 mg Q4H PRN IV 07/30/16 18:00 (Lipitor) 10 mg HS PO 07/30/16 21:00 08/01/16 20:25 (Tylenol) 650 mg Q4H PRN PO 07/30/16 18:00 07/31/16 13:53 (Zofran Inj) 4 mg Q6H PRN IV 07/30/16 18:00 (Folate) 1 mg DAILY PO 07/31/16 09:00 08/05/16 08:59 08/01/16 08:58 (Vitamin B1) 100 mg DAILY PO 07/31/16 09:00 08/01/16 08:58 (Theragran M Tab) 1 tab DAILY PO 07/31/16 09:00 08/05/16 08:59 08/01/16 08:58 (Romazicon Inj) 0.2 mg Q1M PRN IV PUSH 07/30/16 18:00 (Ativan) 1 mg Q4H PRN PO 07/30/16 18:00 07/31/16 18:18 (Ativan Inj) 1 mg Q4H PRN IV PUSH 07/30/16 18:00 07/30/16 18:19 (Ativan) 2 mg Q2H PRN PO 07/30/16 18:00 (Ativan Inj) 2 mg Q2H PRN IV PUSH 07/30/16 18:00 (Ativan Inj) 2 mg Q1H PRN IV PUSH 07/30/16 18:00 (Ativan Inj) 2 mg Q15M PRN IV PUSH 07/30/16 18:00 (Librium) 10 mg TID PRN PO 07/30/16 18:00 (Habitrol 21 Mg Patch.24 Hr) 1 patch DAILY T-DERMAL 07/30/16 18:30 08/01/16 08:58 Miscellaneous Information 1 HS T-DERMAL 07/30/16 21:00 08/01/16 20:23 (NS Flush) 2 ml BID IV FLUSH 07/31/16 09:00 08/01/16 20:23 (NS Flush) 2 ml UNSCH PRN IV FLUSH 07/31/16 09:00 (Aspirin) 325 mg DAILY PO 07/31/16 09:00 08/01/16 08:58 (D50w (Vial) Inj) 25 ml UNSCH PRN IV PUSH 07/31/16 09:00 (Glucagon Inj) 1 mg UNSCH PRN IM/SQ 07/31/16 09:00 Allergies Allergies Coded Allergies No Known Allergies (Verified07/30/16) Exam I&O / VS 07/31/16 07/31/16 08/01/16 15:00 23:00 07:00 Intake Total 949 ml 1120 ml 510 ml Output Total 350 ml 350 ml 1000 ml Balance 599 ml 770 ml -490 ml Intake Oral 360 ml 320 ml 10 ml Oral Supplement 0 ml IV Total 589 ml 800 ml 500 ml Output Urine Total 350 ml 350 ml 1000 ml # Bowel Movements 0 0 Vital Signs Date Time Temp Pulse Resp B/P Pulse Ox O2 Delivery O2 Flow Rate FiO2 08/01/16 19:35 95 Room Air 08/01/16 19:34 99.2 82 16 137/76 95 08/01/16 16:00 97.6 78 14 142/75 98 08/01/16 12:00 99.1 76 23 132/73 97 08/01/16 11:00 74 10 08/01/16 08:00 96 Room Air 08/01/16 08:00 98.7 76 19 134/77 96 08/01/16 08:00 77 08/01/16 07:30 94 21 08/01/16 04:00 98.3 76 19 128/71 93 08/01/16 00:00 98.0 80 16 134/81 94 Exam Comments alert, left sided neglect. speech dysarthric but not aphasic CN--left upper motor neuron CN 7 palsey EOM intact but has a right gaze preference.PERRL Motor 4/5 LUE and lle. 5/5 RUE and RLE. Objective Radiology Results MRI--right mca stroke with thrombus in right M1 carotid US--no significant stenosis Diagnostic Tests ECHO cardiogram--normal Telemetry--normal sinus rhythm Manjinder Duran PhD Aug 01, 2016 20:47
[2016-08-02] VITALS (7 sets, daily range): BP systolic 95–135; BP diastolic 66–88; PULSE 66–84; RESP 14–24; TEMP 98.2–98.8; O2SAT 93–96
[2016-08-02] MEDS: SODIUM CHLORIDE 0.9% FLUSH 10 ML FLUSH IV FLUSH SCH ×2 (08:49→20:59)
[2016-08-02] MEDS: THIAMINE HCL 100 MG TAB PO SCH (08:49)
[2016-08-02] MEDS: FOLIC ACID 1 MG TAB PO SCH (08:50)
[2016-08-02] MEDS: MULTIVITAMINS/MINERALS THERAPEUTIC TAB PO SCH (08:50)
[2016-08-02] MEDS: NICOTINE 21 MG/24 HR PATCH T-DERMAL SCH (08:50)
[2016-08-02] MEDS: ASPIRIN 325 MG TAB PO SCH (08:50)
--- NOTE | 2016-08-02 10:55 | HHI.PR ---
Subjective Remarks Follow-up acute right MCA CVA 07/31/16-patient seen and examined, he did past swallow eval.Lethargic this AM however arousable. Currently afebrile 08/01/16-patient seen and examined, much more alert and oriented to self, states he didn't have good night sleep. Patient is much more aware of his left side able to bend upper and lower extremities and responded to proprioceptive touch 08/02/16-patient seen and examined, no acute event overnight. positive for dysarthric speech. Left upper extremities 4/5 motor Objective Vitals Vital Signs Date Time Temp Pulse Resp B/P Pulse Ox O2 Delivery O2 Flow Rate FiO2 08/02/16 08:00 93 21 08/02/16 08:00 71 08/02/16 08:00 98.3 82 24 123/69 93 08/02/16 04:00 98.8 72 19 125/88 96 08/02/16 00:00 66 18 08/01/16 23:36 99.0 72 16 137/80 98 08/01/16 22:00 78 15 08/01/16 20:35 95 21 08/01/16 20:00 81 08/01/16 19:35 95 Room Air 08/01/16 19:34 99.2 82 16 137/76 95 08/01/16 16:00 97.6 78 14 142/75 98 08/01/16 12:00 99.1 76 23 132/73 97 08/01/16 11:00 74 10 I/O 08/01/16 08/01/16 08/01/16 08/02/16 08/02/16 08/02/16 07:00 15:00 23:00 07:00 15:00 23:00 Intake Total 510 ml 960 ml 1493 ml 100 ml Output Total 1000 ml 1800 ml 700 ml 1600 ml Balance -490 ml -840 ml 793 ml -1500 ml Intake Oral 10 ml 960 ml 560 ml 100 ml IV Total 500 ml 933 ml Output Urine Total 1000 ml 1800 ml 700 ml 1600 ml # Bowel Movements 0 0 0 0 Result Diagram: 07/30/16 1620 07/30/16 1620 Imaging Last Impressions Carotid Artery Ultrasound 07/31/16 0000 Signed Impressions: Service Date/Time: Sunday, July 31, 2016 12:42 - CONCLUSION: Mild plaque on the right. Negative examination for a hemodynamically significant carotid stenosis. Beto Shannon MD Neck Magnetic Resonance Angiography 07/30/16 1712 Signed Impressions: Service Date/Time: July 19:09 - CONCLUSION: Hypoplastic right vertebral artery and slight atherosclerotic plaquing of bilateral ICAs. Sarah Mcintosh MD Head Magnetic Resonance Angiography 07/30/16 1712 Signed Impressions: Service Date/Time: July 18:10 - CONCLUSION: Complete occlusion of right M1 due to acute thrombus with high-grade stenosis of right [employer]. Sarah Mcintosh MD Head CT 07/30/16 1626 Signed Impressions: Service Date/Time: July 16:23 - CONCLUSION: 1. The total abnormality which may reflect thrombosed vessel, localized subarachnoid hemorrhage or artifact in the posterior right temporal region. MRI is recommended for further evaluation if clinically indicated. Min Vera MD Cervical Spine CT 07/30/16 0000 Signed Impressions: Service Date/Time: July 16:23 - CONCLUSION: Mild cervical kyphosis with degenerative disc disease at multiple levels, most severe at C6-C7. No acute cervical spine abnormality is identified. Juan Diego Barbour MD Brain MRI 07/30/16 0000 Signed Impressions: Service Date/Time: July 18:10 - CONCLUSION: Acute infarction in the right temporal and periventricular regions involving parts of the basal ganglia. No hemorrhage or mass effect. Sarah Mcintosh MD Objective Remarks GENERAL: NAD with dysarthric speech SKIN: Warm and dry. HEAD: Normocephalic. EYES: No scleral icterus. No injection or drainage. NECK: Supple, trachea midline. No JVD or lymphadenopathy. CARDIOVASCULAR: Regular rate and rhythm without murmurs, gallops, or rubs. RESPIRATORY: Breath sounds equal bilaterally. No accessory muscle use. GASTROINTESTINAL: Abdomen soft, non-tender, nondistended. MUSCULOSKELETAL: No cyanosis, or edema. LUE and LLE 4/5 motor; RUE and RLE 5/5 motor BACK: Nontender without obvious deformity. No CVA tenderness. A/P Problem List: (1) Acute right MCA stroke ICD Code: I63.511 Status: Acute (2) Acute left hemiparesis ICD Code: G81.94 Status: Resolved (3) Acute CVA (cerebrovascular accident) ICD Code: I63.9 Status: Acute (4) Tobacco abuse counseling ICD Code: Z71.6 Status: Acute (5) Alcohol abuse ICD Code: F10.10 Status: Chronic (6) Tobacco abuse ICD Code: Z72.0 Status: Acute Assessment and Plan 56-year-old man with Acute CVA with left sided neglect: Treatment per stroke protocol -Continue with aspirin -On statin therapy -NIHSS, Neuro checks, Monitor on telemetry -PT/OT/ST evaluations, consult rehab medicine -s/p permissive HTN, IV Vasotec and IV labetalol if SBP >220 - LDL 119 and HgA1C 5.8 -carotid U/S noted and negative -Head CT 07/30/16 with finding of The total abnormality which may reflect thrombosed vessel, localized subarachnoid hemorrhage or artifact in the posterior right temporal region - brain MRI/MRA as well as neck MRA noted - echocardiogram with EF of 60% and Holter negative -Neurology input appreciated pending hypercoagulable studies History of hypertension: s/p permissive hypertension Nicotinic dependence: Counseled to quit,on nicotine patch alcohol Abuse: Rally Pack, CIWA per protocol, Librium PRN. Will DC CIWA 08/03 DVT prophylaxis: Bilateral SCDs GI prophylaxis: PPI Discharge Planning Likely discharge within next 48 hours Addison Zhao MD Aug 02, 2016 10:55
--- NOTE | 2016-08-02 15:54 | HHI.PR ---
Review/Management Diagnosis right MCA stroke Plan continue aspirin and statin PT/OT/speech therapy fioricet for headache Diagnosis/Plan: Subjective Subjective Comments No acute events reported Has intermittent migraine headaches Active Medications Current Medications Medications (Trade) Dose Ordered Sig/Jeanette Route Start Time Stop Time Status Last Admin (Vasotec Inj) 1.25 mg Q4H PRN IV 07/30/16 18:00 (Lipitor) 10 mg HS PO 07/30/16 21:00 08/01/16 20:25 (Tylenol) 650 mg Q4H PRN PO 07/30/16 18:00 07/31/16 13:53 (Zofran Inj) 4 mg Q6H PRN IV 07/30/16 18:00 (Folate) 1 mg DAILY PO 07/31/16 09:00 08/05/16 08:59 08/02/16 08:50 (Vitamin B1) 100 mg DAILY PO 07/31/16 09:00 08/02/16 08:49 (Theragran M Tab) 1 tab DAILY PO 07/31/16 09:00 08/05/16 08:59 08/02/16 08:50 (Romazicon Inj) 0.2 mg Q1M PRN IV PUSH 07/30/16 18:00 (Ativan) 1 mg Q4H PRN PO 07/30/16 18:00 07/31/16 18:18 (Ativan Inj) 1 mg Q4H PRN IV PUSH 07/30/16 18:00 07/30/16 18:19 (Ativan) 2 mg Q2H PRN PO 07/30/16 18:00 (Ativan Inj) 2 mg Q2H PRN IV PUSH 07/30/16 18:00 (Ativan Inj) 2 mg Q1H PRN IV PUSH 07/30/16 18:00 (Ativan Inj) 2 mg Q15M PRN IV PUSH 07/30/16 18:00 (Librium) 10 mg TID PRN PO 07/30/16 18:00 (Habitrol 21 Mg Patch.24 Hr) 1 patch DAILY T-DERMAL 07/30/16 18:30 08/02/16 08:50 Miscellaneous Information 1 HS T-DERMAL 07/30/16 21:00 08/01/16 20:23 (NS Flush) 2 ml BID IV FLUSH 07/31/16 09:00 08/02/16 08:49 (NS Flush) 2 ml UNSCH PRN IV FLUSH 07/31/16 09:00 (Aspirin) 325 mg DAILY PO 07/31/16 09:00 08/02/16 08:50 (D50w (Vial) Inj) 25 ml UNSCH PRN IV PUSH 07/31/16 09:00 (Glucagon Inj) 1 mg UNSCH PRN IM/SQ 07/31/16 09:00 Allergies Allergies Coded Allergies No Known Allergies (Verified07/30/16) Exam I&O / VS 08/01/16 08/01/16 08/02/16 15:00 23:00 07:00 Intake Total 960 ml 1493 ml 100 ml Output Total 1800 ml 700 ml 1600 ml Balance -840 ml 793 ml -1500 ml Intake Oral 960 ml 560 ml 100 ml IV Total 933 ml Output Urine Total 1800 ml 700 ml 1600 ml # Bowel Movements 0 0 0 Vital Signs Date Time Temp Pulse Resp B/P Pulse Ox O2 Delivery O2 Flow Rate FiO2 08/02/16 12:00 98.7 78 18 120/70 94 08/02/16 08:00 93 21 08/02/16 08:00 71 08/02/16 08:00 98.3 82 24 123/69 93 08/02/16 04:00 98.8 72 19 125/88 96 08/02/16 00:00 66 18 08/01/16 23:36 99.0 72 16 137/80 98 08/01/16 22:00 78 15 08/01/16 20:35 95 21 08/01/16 20:00 81 08/01/16 19:35 95 Room Air 08/01/16 19:34 99.2 82 16 137/76 95 08/01/16 16:00 97.6 78 14 142/75 98 Exam Comments alert, left sided neglect is much improved. speech dysarthric but not aphasic CN--left upper motor neuron CN 7 palsey EOM intact but has a right gaze preference.PERRL Motor 5-/5 LUE and lle. 5/5 RUE and RLE. Manjinder Duran PhD Aug 02, 2016 15:53
[2016-08-02] MEDS ORDERED: ACETAMIN 325 MG/BUTALBITAL 50 MG/CAFFEINE 40 MG TAB PO PRN (16:15)
[2016-08-02] MEDS: ATORVASTATIN 10 MG TAB PO SCH (20:58)
[2016-08-02] MEDS: REMOVE OLD PATCH T-DERMAL SCH (20:59)
--- NOTE | 2016-08-02 22:48 | HM ---
Date Performed: 07/31/2016 Time Performed: 15:21:00 HOOKUP DATE: 07/31/16 03:21:00 PM Fri ANALYSIS START TIME: 07/31/2016 3:26:00 PM ANALYSIS END TIME: 08/01/2016 3:30:00 PM PATIENT AGE: 56 PATIENT HEIGHT PATIENT WEIGHT: 193 DRUG LIST PATIENT DIAGNOSIS: STROKE TEST NARRATIVE: The patient's average heart rate was 80 BPM. No episodes of tachycardia wer e noted. No episodes of bradycardia were noted. No pauses exceeding 2.0 seconds were noted. 1176 ventricular ectopics, which represented 1% of the total beat count, were noted. The highest cory tricular ectopic frequency occurred from 01:00 PM to 02:00 PM Sat. During this time 135 VE(s) occurr ed. Ventricular ectopics were observed as 1176 isolated beat(s) only. No couplets or runs were note d. 19 supraventricular ectopics, which represented < 1% of the total beat count, were noted. The highest supraventricular ectopic frequency occurred from 05:00 AM to 06:00 AM Sat. During this time 4 SVE(s) occurred. No episodes of ST depression (defined as -1.0 mm or more) were noted in chann el 1. No episodes of ST depression (defined as -1.0 mm or more) were noted in channel 2. No episode s of ST depression (defined as -1.0 mm or more) were noted in channel 3. TEST INTERPRETATION: Sinusn rhythm Frequent PVCs Occasional PACs Signed by : Shani Marin
[2016-08-03] VITALS: BP 148/88; PULSE 72; RESP 16; TEMP 98.4; O2SAT 96
[2016-08-03 04:00] VITALS: BP 153/89; PULSE 75; RESP 18; TEMP 98.9; O2SAT 97
[2016-08-03 08:00] VITALS: BP 145/88; PULSE 77; PULSE 78; RESP 18; TEMP 98.2; O2SAT 94
[2016-08-03] MEDS: ASPIRIN 325 MG TAB PO SCH (09:10)
[2016-08-03] MEDS: FOLIC ACID 1 MG TAB PO SCH (09:10)
[2016-08-03] MEDS: THIAMINE HCL 100 MG TAB PO SCH (09:10)
[2016-08-03] MEDS: NICOTINE 21 MG/24 HR PATCH T-DERMAL SCH (09:10)
[2016-08-03] MEDS: MULTIVITAMINS/MINERALS THERAPEUTIC TAB PO SCH (09:10)
[2016-08-03] MEDS: SODIUM CHLORIDE 0.9% FLUSH 10 ML FLUSH IV FLUSH SCH (09:11)
--- NOTE | 2016-08-03 09:40 | HHI.PR ---
Subjective Remarks Follow-up acute right MCA CVA 07/31/16-patient seen and examined, he did past swallow eval.Lethargic this AM however arousable. Currently afebrile 08/01/16-patient seen and examined, much more alert and oriented to self, states he didn't have good night sleep. Patient is much more aware of his left side able to bend upper and lower extremities and responded to proprioceptive touch 08/02/16-patient seen and examined, no acute event overnight. positive for dysarthric speech. Left upper extremities / motor 08/03/16-patient seen and examined; no new event overnight and his headaches are resolved. Able to move all extremities equally. Tolerated by mouth without any competition nausea and vomiting. Normal speech. Girlfriend's daughter by the bedside Objective Vitals Vital Signs Date Time Temp Pulse Resp B/P Pulse Ox O2 Delivery O2 Flow Rate FiO2 08/03/16 04:00 98.9 75 18 153/89 97 08/03/16 00:00 72 08/03/16 00:00 98.4 72 16 148/88 96 08/02/16 20:08 94 21 08/02/16 20:00 98.3 84 19 135/82 08/02/16 20:00 84 08/02/16 16:15 98.2 76 14 95/66 95 08/02/16 12:00 98.7 78 18 120/70 94 I/O 08/02/16 08/02/16 08/02/16 08/03/16 08/03/16 08/03/16 07:00 15:00 23:00 07:00 15:00 23:00 Intake Total 100 ml 1740 ml 240 ml Output Total 1600 ml 700 ml 1000 ml Balance -1500 ml 1040 ml -760 ml Intake Oral 100 ml 1740 ml 240 ml IV Total 0 ml Output Urine Total 1600 ml 700 ml 1000 ml # Voids 2 2 # Bowel Movements 0 0 Result Diagram: 07/30/16 1620 07/30/16 162 Imaging Last Impressions Carotid Artery Ultrasound 07/31/16 0000 Signed Impressions: Service Date/Time: Sunday, July 31, 2016 12:42 - CONCLUSION: Mild plaque on the right. Negative examination for a hemodynamically significant carotid stenosis. Beto Shannon MD Neck Magnetic Resonance Angiography 07/30/16 1712 Signed Impressions: Service Date/Time: July 19:09 - CONCLUSION: Hypoplastic right vertebral artery and slight atherosclerotic plaquing of bilateral ICAs. Sarah Mcintosh MD Head Magnetic Resonance Angiography 07/30/16 1712 Signed Impressions: Service Date/Time: July 18:10 - CONCLUSION: Complete occlusion of right M1 due to acute thrombus with high-grade stenosis of right [employer]. Sarah Mcintosh MD Head CT 07/30/16 1626 Signed Impressions: Service Date/Time: July 16:23 - CONCLUSION: 1. The total abnormality which may reflect thrombosed vessel, localized subarachnoid hemorrhage or artifact in the posterior right temporal region. MRI is recommended for further evaluation if clinically indicated. Min Vera MD Cervical Spine CT 07/30/16 0000 Signed Impressions: Service Date/Time: July 16:23 - CONCLUSION: Mild cervical kyphosis with degenerative disc disease at multiple levels, most severe at C6-C7. No acute cervical spine abnormality is identified. Juan Diego Barbour MD Brain MRI 07/30/16 0000 Signed Impressions: Service Date/Time: July 18:10 - CONCLUSION: Acute infarction in the right temporal and periventricular regions involving parts of the basal ganglia. No hemorrhage or mass effect. Sarah Mcintosh MD Objective Remarks GENERAL: NAD SKIN: Warm and dry. HEAD: Normocephalic. EYES: No scleral icterus. No injection or drainage. NECK: Supple, trachea midline. No JVD or lymphadenopathy. CARDIOVASCULAR: Regular rate and rhythm without murmurs, gallops, or rubs. RESPIRATORY: Breath sounds equal bilaterally. No accessory muscle use. GASTROINTESTINAL: Abdomen soft, non-tender, nondistended. MUSCULOSKELETAL: No cyanosis, or edema. LUE and LLE 5/5 motor; RUE and RLE 5/5 motor BACK: Nontender without obvious deformity. No CVA tenderness. Procedures none A/P Problem List: (1) Acute right MCA stroke ICD Code: I63.511 Status: Acute (2) Acute left hemiparesis ICD Code: G81.94 Status: Resolved (3) Acute CVA (cerebrovascular accident) ICD Code: I63.9 Status: Acute (4) Tobacco abuse counseling ICD Code: Z71.6 Status: Acute (5) Alcohol abuse ICD Code: F10.10 Status: Chronic (6) Tobacco abuse ICD Code: Z72.0 Status: Chronic (7) Left-sided neglect ICD Code: R41.4 Status: Resolved (8) Benign hypertension ICD Code: I10 Status: Acute (9) Hyperlipidemia ICD Code: E78.5 Status: Acute Assessment and Plan 56-year-old man with Acute CVA with left sided neglect: Left-sided neglect resolved and continue Treatment per stroke protocol -Continue with aspirin -On statin therapy -NIHSS, Neuro checks, Monitor on telemetry -PT/OT/ST evaluations, consult rehab medicine -s/p permissive HTN, IV Vasotec and IV labetalol if SBP >220 - LDL 119 and HgA1C 5.8 -carotid U/S noted and negative -Head CT 07/30/16 with finding of The total abnormality which may reflect thrombosed vessel, localized subarachnoid hemorrhage or artifact in the posterior right temporal region - brain MRI/MRA as well as neck MRA noted - echocardiogram with EF of 60% and Holter negative -Neurology input appreciated pending hypercoagulable studies History of hypertension: s/p permissive hypertension. Start Lopressor 25 mg by mouth twice a day Hyperlipidemia: Continue statin Migraines headache: Continue with Fioricet Nicotinic dependence: Counseled to quit,on nicotine patch alcohol Abuse: Rally Pack, CIWA per protocol, Librium PRN. DC CIWA 08/03 DVT prophylaxis: Bilateral SCDs GI prophylaxis: PPI Discharge Planning Likely discharge home today with [facility] Addison Zhao MD August 03, 2016 09:40
[2016-08-03] MEDS ORDERED: METO25TA3 PO (09:49)
[2016-08-03] MEDS ORDERED: LIPI10TA PO (09:49)
[2016-08-03] MEDS ORDERED: ASPI325T PO (09:49)
[2016-08-03] MEDS ORDERED: VITA100T2 PO (09:49)
[2016-08-03] MEDS ORDERED: METOPROLOL TARTRATE 25 MG TAB PO SCH (10:00)
[2016-08-03 12:00] VITALS: BP 140/85; PULSE 74; RESP 18; TEMP 98.4; O2SAT 96
[2016-08-03] MEDS ORDERED: LORazepam 0.5 MG TAB PO ONE (12:00)
[2016-08-03 13:50] LABS: THROMBIN TIME FOR LA ND sec (13-19)
[2016-08-03 16:00] VITALS: BP 142/83; PULSE 80; RESP 18; TEMP 98.1; O2SAT 97
--- NOTE | 2016-08-03 17:27 | HHI.DS ---
Discharge Summary Admission Date Jul 30, 2016 at 17:21 Discharge Date: August 03, 2016 Admitting Diagnosis stroke (1) Acute right MCA stroke ICD Code: I63.511 Diagnosis: Principal (2) Acute left hemiparesis ICD Code: G81.94 (3) Acute CVA (cerebrovascular accident) ICD Code: I63.9 (4) Tobacco abuse counseling ICD Code: Z71.6 (5) Alcohol abuse ICD Code: F10.10 (6) Tobacco abuse ICD Code: Z72.0 (7) Left-sided neglect ICD Code: R41.4 (8) Benign hypertension ICD Code: I10 (9) Hyperlipidemia ICD Code: E78.5 Procedures none Brief History - From Admission 56-year-old male with a history of alcohol abuse, tobacco abuse was brought to the ED for evaluation of acute onset of altered mental status change. Apparently patient was well this morning around 9:30AM , however when he was seen around 3PM by his friend ; he was staggering with an unsteady gait and speaking with some slurring of the speech. The last time patient had a drink was 2 days ago, however he has a history of alcohol abuse. He brought to the ED for AMS, however CT Head reveal The total abnormality which may reflect thrombosed vessel, localized subarachnoid hemorrhage or artifact in the posterior right temporal region. On exam he had a left-sided neglect. During my exam, patient was alert and oriented to self able to give his date of however with slurred speech. Most of the history was obtained from his friend who was present during the entire encounter CBC/BMP: 07/30/16 1620 07/30/16 1620 Imaging Last Impressions Carotid Artery Ultrasound 07/31/16 0000 Signed Impressions: Service Date/Time: Sunday, July 31, 2016 12:42 - CONCLUSION: Mild plaque on the right. Negative examination for a hemodynamically significant carotid stenosis. Beto Shannon MD Neck Magnetic Resonance Angiography 07/30/16 1712 Signed Impressions: Service Date/Time: July 19:09 - CONCLUSION: Hypoplastic right vertebral artery and slight atherosclerotic plaquing of bilateral ICAs. Sarah Mcintosh MD Head Magnetic Resonance Angiography 07/30/16 1712 Signed Impressions: Service Date/Time: July 18:10 - CONCLUSION: Complete occlusion of right M1 due to acute thrombus with high-grade stenosis of right [employer]. Sarah Mcintosh MD Head CT 07/30/16 1626 Signed Impressions: Service Date/Time: July 16:23 - CONCLUSION: 1. The total abnormality which may reflect thrombosed vessel, localized subarachnoid hemorrhage or artifact in the posterior right temporal region. MRI is recommended for further evaluation if clinically indicated. Min Vera MD Cervical Spine CT 07/30/16 0000 Signed Impressions: Service Date/Time: July 16:23 - CONCLUSION: Mild cervical kyphosis with degenerative disc disease at multiple levels, most severe at C6-C7. No acute cervical spine abnormality is identified. Juan Diego Barbour MD Brain MRI 07/30/16 0000 Signed Impressions: Service Date/Time: July 18:10 - CONCLUSION: Acute infarction in the right temporal and periventricular regions involving parts of the basal ganglia. No hemorrhage or mass effect. Sarah Mcintosh MD PE at Discharge GENERAL: NAD SKIN: Warm and dry. HEAD: Normocephalic. EYES: No scleral icterus. No injection or drainage. NECK: Supple, trachea midline. No JVD or lymphadenopathy. CARDIOVASCULAR: Regular rate and rhythm without murmurs, gallops, or rubs. RESPIRATORY: Breath sounds equal bilaterally. No accessory muscle use. GASTROINTESTINAL: Abdomen soft, non-tender, nondistended. MUSCULOSKELETAL: No cyanosis, or edema. LUE and LLE 5/5 motor; RUE and RLE 5/5 motor BACK: Nontender without obvious deformity. No CVA tenderness. Hospital Course Patient admitted secondary to Acute CVA with left sided neglect for which he was started on stroke protocol with consultation to neurology. Permissive hypertension was initially allowed. PT/OT/speech therapy were consulted. Patient started on aspirin, statin. Patient's condition tremendously improved has left-sided neglect resolved as well as left hemiparesis. He was also started on CIWA protocol as well as Rally pack. Permissive hypertension was subsequently discontinued and patient started on a low-dose beta levi. DVT and GI prophylaxis were provided. Pt Condition on Discharge: Stable Discharge Disposition: Discharge Home Discharge Time: > 30 minutes Discharge Instructions DIET: Follow Instructions for: Heart Healthy Diet Speech Therapy-Diet Recommends: Mechanical Soft, Floyd Thickened Liquids, Chopped Meat w/Gravy Activities to Avoid: Driving Follow up Referrals: Neurology PCP Follow-up - 1 Week New Medications: Aspirin (Aspirin) 325 Mg Tab 325 MG PO DAILY Prevent Blood Clot #30 TAB Atorvastatin (Lipitor) 10 Mg Tab 10 MG PO HS Cholesterol Management #30 Ref 3 TAB Metoprolol Tartrate (Metoprolol Tartrate) 25 Mg Tab 25 MG PO Q12HR Blood Pressure Management #60 Ref 3 TAB Thiamine (Vitamin B-1) 100 Mg Tab 100 MG PO DAILY Alcohol Detox #30 TAB Additional Information I Spent 35 minute [id number] with the patient and his girlfriend on the johnson discussing this patient's disposition, prognosis and plan of care. Over half of the time spent was devoted to counselling the patient regarding alcohol cessation and his current diagnosis of acute CVA as well as medical compliance. Addison Zhao MD August 03, 2016 17:26
[2016-08-12] MEDS ORDERED: METO25TA3 PO (12:31)
[2016-08-12] MEDS ORDERED: LIPI10TA PO (12:31)
== END 2016-08-03 19:13 | disposition home or self-care (01) | DRG 65 ==
LOC: PHED 16:23 → PHEDA 17:21 → PHICU 22:08 → PH3A 08-03 03:56
PROVIDERS: ADMIT Hospitalist; ATTEND Hospitalist
DX: I63.511 Cerebral infarction due to unspecified occlusion or stenosis of right middle cerebral artery (principal); G81.94 Hemiplegia, unspecified affecting left nondominant side; K75.9 Inflammatory liver disease, unspecified; R41.4 Neurologic neglect syndrome; I10 Essential (primary) hypertension; I25.2 Old myocardial infarction; K21.9 Gastro-esophageal reflux disease without esophagitis; F17.200 Nicotine dependence, unspecified, uncomplicated; F10.10 Alcohol abuse, uncomplicated; R47.1 Dysarthria and anarthria; R26.81 Unsteadiness on feet; M40.202 Unspecified kyphosis, cervical region; M50.323 Other cervical disc degeneration at C6-C7 level; G43.909 Migraine, unspecified, not intractable, without status migrainosus; E78.5 Hyperlipidemia, unspecified
CPT/HCPCS: 70450; 70544; 70548; 70551; 72125; 80053; 80061; 80307; 81001; 81240; 81241; 82948; 83036; 84484; 85025; 85303; 85306; 85610; 85613; 85652; 85730; 86147; 86592; 93005; 93225; 93226; 93306; 93880; A9579; J2060; J7030

== ENCOUNTER 2018-03-01 11:46 | Inpatient (IN) ==
[2018-03-01] MEDS ORDERED: Thiamine Inj 100 MG in Sodium Chlor 0.9% Inj 100 ML IV.SIG ONE (11:55)
[2018-03-01 12:23] LABS: Baso % (Auto) 0.4 % (0.0-2.0); Eos # (Auto) 0.1 th/mm3 (0.0-0.4); Eos % (Auto) 1.9 % (0.0-4.0); Hemoglobin 14.4 gm/dL (13.0-17.0); Lymph # (Auto) 1.2 th/mm3 (1.0-4.8); Mean Corpuscular HGB Conc 34.4 % (32.0-36.0); Mean Corpuscular Hemoglobin 30.9 pg (27.0-34.0); Mean Platelet Volume 7.8 fL (7.0-11.0); Mono # (Auto) 0.5 th/mm3 (0.0-0.9); Mono % (Auto) 9.1 % (0.0-8.0); Neut # (Auto) 4.1 th/mm3 (1.8-7.7); Neut % (Auto) 67.6 % (16.0-70.0); Platelet Count 192 th/mm3 (150-450); Red Blood Count 4.67 mil/mm3 (4.50-5.90); Red Cell Distribution Width 11.9 % (11.6-17.2); White Blood Count 5.9 th/mm3 (4.0-11.0)
[2018-03-01 12:32] LABS: Chloride 107 meq/L (98-107); Potassium 3.7 meq/L (3.5-5.1); Sodium 139 meq/L (136-145)
[2018-03-01 12:35] LABS: Albumin 3.7 g/dL (3.4-5.0); Anion Gap 8 meq/L (5-15); Calcium 8.3 mg/dL (8.5-10.1); Carbon Dioxide 24.3 meq/L (21.0-32.0)
[2018-03-01 12:36] LABS: Blood Urea Nitrogen 10 mg/dL (7-18); Glucose,Random 93 mg/dL (74-106); Magnesium 1.9 mg/dL (1.5-2.5)
[2018-03-01 12:38] LABS: Alanine Aminotransferase 25 U/L (12-78)
[2018-03-01 12:39] LABS: Aspartate Aminotransferase 11 U/L (15-37); Glomerular Filtration Rate Greater Than 89 mL/min (>89)
[2018-03-01 12:41] LABS: Alkaline Phosphatase 66 U/L (45-117)
--- NOTE | 2018-03-01 13:00 | ED ---
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 Per EMS he was confused with multiple spasms and hypertension with a blood pressure in the 200s. They gave him 1 mg of Versed in route as they were concerned about DTs and states that his blood pressure has improved since. Per report patient does drink alcohol regularly and last alcoholic beverage was several days ago. Patient does admit to falling several days ago which was secondary to a missed step with his left leg. He has had some chest pain since then which he attributes to the fall. He denies fever, chills. He denies any abdominal pain. He reports old, chronic back pain that is unchanged. MD complaint: Reports altered mental status and confusion Onset (ago): unknown Severity: moderate Consistency of symptoms: waxing and waning Context: Reports alcohol abuse Associated symptoms: Reports chest pain Treatments prior to arrival: Reports other Related Data Home Medications Medication Instructions Recorded Confirmed Unable to Obtain Home Meds 03/01/18 03/01/18 Allergies Allergy/AdvReac Type Severity Reaction Status Date / Time No Known Allergies Allergy Verified 03/01/18 11:52 Review of Systems ROS: all other systems reviewed are negative [facility] Medical History Medical History CVA, old, hemiparesis (Acute) HTN (hypertension) (Acute) Surgical history unknown (Acute) Social History Social History Substance History: No History of Abuse and Unable to Obtain Second Hand Smoke Exposure: Yes Smoking Status: Current every day smoker Tobacco Type: Cigarettes How Often Do You Have a Drink Containing Alcohol: 4 or more times a week Recent Travel in [facility] within the Last 8 Weeks: No Recent Out of Country Travel within the Last 8 Weeks: No Immunization History Tetanus Immunization: Unsure Exam Narrative Exam Narrative: GENERAL: Well-appearing male in no acute distress SKIN: Focused skin assessment warm/dry. No rashes. HEAD: Atraumatic. Normocephalic. EYES: Pupils equal and round. No scleral icterus. No injection or drainage. ENT: No nasal bleeding or discharge. Mucous membranes pink and moist. NECK: Trachea midline. No JVD. CARDIOVASCULAR: Regular rate and rhythm. No murmur appreciated. Intact and equal peripheral pulses. RESPIRATORY: No accessory muscle use. Clear to auscultation. Breath sounds equal bilaterally. GASTROINTESTINAL: Abdomen soft, non-tender, nondistended. Hepatic and splenic margins not palpable. MUSCULOSKELETAL: No obvious deformities. No clubbing. No cyanosis. No edema. NEUROLOGICAL: Awake and alert but confused. No obvious cranial nerve deficits. Chronic contracture of the left upper extremity with weakness of the left lower extremity. Normal speech. PSYCHIATRIC: Appropriate mood and affect; insight and judgment normal. Course Initial Documented Vital Signs Temperature 97.8 F 03/01/18 11:48 Pulse Rate 62 03/01/18 11:48 Respiratory Rate 18 03/01/18 11:48 Blood Pressure 156/87 H 03/01/18 11:48 Pulse Oximetry 96 03/01/18 11:48 Last Documented Vital Signs Temperature 97.8 F 03/01/18 11:48 Pulse Rate 74 03/01/18 15:07 Respiratory Rate 18 03/01/18 15:07 Blood Pressure 161/96 H 03/01/18 15:07 Pulse Oximetry 97 03/01/18 15:07 Medical Decision Making MDM Narrative Medical decision making narrative: Patient is a 57-year-old male who presents with altered mental status. He has been hemodynamically stable while in the emergency department and EKG does not show any acute ischemic changes. CT of the head revealed encephalomalacia which was present on previous imaging. Labs were relatively unremarkable and did not reveal an etiology for his altered mental status. He was given thiamine empirically for possible Warnicke encephalopathy. Patient has been intermittently sleepy, then awake and agitated , then has been seen trying to eat his EKG leads. I spoke with Dr. Berlin Tran, hospitalist on-call, who agreed to admission for further evaluation and management. Medical Screen Exam Complete: Yes Emergency Medical Condition: Yes Differential Diagnosis Differential Diagnosis: Differential diagnosis includes but is not limited to intracranial hemorrhage, closed head injury, pneumonia, acute acute coronary syndrome, hepatic encephalopathy, Wernicke encephalopathy, delirium tremens. Medical Records Medical records reviewed: Yes I reviewed the patient's medical records. Lab Data Lab results reviewed: Yes I reviewed the patient's lab results. Result diagrams: 03/01/18 12:15 03/01/18 12:15 Lab Results 03/01/18 03/01/18 03/01/18 Range/Units 12:08 12:15 12:15 CBC w Diff Auto diff final WBC 5.9 (4.0-11.0) th/mm3 RBC 4.67 (4.50-5.90) mil/mm3 Hgb 14.4 (13.0-17.0) gm/dL Hct 42.0 (39.0-51.0) % MCV 90.0 (80.0-100.0) fL MCH 30.9 (27.0-34.0) pg MCHC 34.4 (32.0-36.0) % RDW 11.9 (11.6-17.2) % Plt Count 192 (150-450) th/mm3 MPV 7.8 (7.0-11.0) fL Neut % (Auto) 67.6 (16.0-70.0) % Lymph % (Auto) 21.0 (9.0-44.0) % [place] % (Auto) 9.1 H (0.0-8.0) % Eos % (Auto) 1.9 (0.0-4.0) % Baso % (Auto) 0.4 (0.0-2.0) % Neut # (Auto) 4.1 (1.8-7.7) th/mm3 Lymph # (Auto) 1.2 (1.0-4.8) th/mm3 [place] # (Auto) 0.5 (0.0-0.9) th/mm3 Eos # (Auto) 0.1 (0.0-0.4) th/mm3 Baso # (Auto) 0.0 (0.0-0.2) th/mm3 WBC Differential . Differential Comment . Sodium 139 (136-145) meq/L Potassium 3.7 (3.5-5.1) meq/L Chloride 107 (98-107) meq/L Carbon Dioxide 24.3 (21.0-32.0) meq/L Anion Gap 8 (5-15) meq/L BUN 10 (7-18) mg/dL Creatinine 0.70 (0.60-1.30) mg/dL Estimated GFR Greater than 89 (>89) mL/min POC Glucose 96 (68-110) mg/dl Random Glucose 93 (74-106) mg/dL Calcium 8.3 L (8.5-10.1) mg/dL Magnesium 1.9 (1.5-2.5) mg/dL Total Bilirubin 0.4 (0.2-1.0) mg/dL AST 11 L (15-37) U/L ALT 25 (12-78) U/L Alkaline Phosphatase 66 (45-117) U/L Ammonia (11-32) mcmol/L Troponin I Less than 0.02 L (0.02-0.05) ng/mL Total Protein 7.0 (6.4-8.2) g/dL Albumin 3.7 (3.4-5.0) g/dL TSH 1.300 (0.358-3.740) uIU/mL Ur Collection Type Urine Color (Yellw/Straw) Urine Clarity (Clear) Urine pH (5.0-8.5) Ur Specific [place] (1.002-1.035) Urine Protein (Neg-Trace) mg/dL Urine Glucose (UA) (Negative) mg/dL Urine Ketones (Negative) mg/dL Urine Occult Blood (Negative) Urine Nitrate (Negative) Urine Bilirubin (Negative) Urine Urobilinogen (Less than 2) mg/dL Ur Leukocyte Esterase (Negative) Urine WBC (0-5) /hpf Ur Squamous Epith Cells (0-5) /hpf Urine Mucus (Occasional) /lpf Micro UA Comment Ur Microscopic Review Urine Culture Comments Urine Opiates Screen (Neg) Ur Barbiturates Screen (Neg) Ur Amphetamines Screen (Neg) U Benzodiazepines Scrn (Neg) Urine Cocaine Screen (Neg) U Cannabinoids Screen (Neg) Serum Alcohol (0-5) mg/dL 03/01/18 03/01/18 03/01/18 Range/Units 12:15 12:15 12:55 CBC w Diff WBC (4.0-11.0) th/mm3 RBC (4.50-5.90) mil/mm3 Hgb (13.0-17.0) gm/dL Hct (39.0-51.0) % MCV (80.0-100.0) fL MCH (27.0-34.0) pg MCHC (32.0-36.0) % RDW (11.6-17.2) % Plt Count (150-450) th/mm3 MPV (7.0-11.0) fL Neut % (Auto) (16.0-70.0) % Lymph % (Auto) (9.0-44.0) % [place] % (Auto) (0.0-8.0) % Eos % (Auto) (0.0-4.0) % Baso % (Auto) (0.0-2.0) % Neut # (Auto) (1.8-7.7) th/mm3 Lymph # (Auto) (1.0-4.8) th/mm3 [place] # (Auto) (0.0-0.9) th/mm3 Eos # (Auto) (0.0-0.4) th/mm3 Baso # (Auto) (0.0-0.2) th/mm3 WBC Differential Differential Comment Sodium (136-145) meq/L Potassium (3.5-5.1) meq/L Chloride (98-107) meq/L Carbon Dioxide (21.0-32.0) meq/L Anion Gap (5-15) meq/L BUN (7-18) mg/dL Creatinine (0.60-1.30) mg/dL Estimated GFR (>89) mL/min POC Glucose (68-110) mg/dl Random Glucose (74-106) mg/dL Calcium (8.5-10.1) mg/dL Magnesium (1.5-2.5) mg/dL Total Bilirubin (0.2-1.0) mg/dL AST (15-37) U/L ALT (12-78) U/L Alkaline Phosphatase (45-117) U/L Ammonia 23 (11-32) mcmol/L Troponin I (0.02-0.05) ng/mL Total Protein (6.4-8.2) g/dL Albumin (3.4-5.0) g/dL TSH (0.358-3.740) uIU/mL Ur Collection Type Urine Color (Yellw/Straw) Urine Clarity (Clear) Urine pH (5.0-8.5) Ur Specific [place] (1.002-1.035) Urine Protein (Neg-Trace) mg/dL Urine Glucose (UA) (Negative) mg/dL Urine Ketones (Negative) mg/dL Urine Occult Blood (Negative) Urine Nitrate (Negative) Urine Bilirubin (Negative) Urine Urobilinogen (Less than 2) mg/dL Ur Leukocyte Esterase (Negative) Urine WBC (0-5) /hpf Ur Squamous Epith Cells (0-5) /hpf Urine Mucus (Occasional) /lpf Micro UA Comment Ur Microscopic Review Urine Culture Comments Urine Opiates Screen Neg (Neg) Ur Barbiturates Screen Neg (Neg) Ur Amphetamines Screen Neg (Neg) U Benzodiazepines Scrn Pos H (Neg) Urine Cocaine Screen Neg (Neg) U Cannabinoids Screen Neg (Neg) Serum Alcohol Less than 3 (0-5) mg/dL 03/01/18 03/01/18 Range/Units 12:55 16:10 CBC w Diff WBC (4.0-11.0) th/mm3 RBC (4.50-5.90) mil/mm3 Hgb (13.0-17.0) gm/dL Hct (39.0-51.0) % MCV (80.0-100.0) fL MCH (27.0-34.0) pg MCHC (32.0-36.0) % RDW (11.6-17.2) % Plt Count (150-450) th/mm3 MPV (7.0-11.0) fL Neut % (Auto) (16.0-70.0) % Lymph % (Auto) (9.0-44.0) % [place] % (Auto) (0.0-8.0) % Eos % (Auto) (0.0-4.0) % Baso % (Auto) (0.0-2.0) % Neut # (Auto) (1.8-7.7) th/mm3 Lymph # (Auto) (1.0-4.8) th/mm3 [place] # (Auto) (0.0-0.9) th/mm3 Eos # (Auto) (0.0-0.4) th/mm3 Baso # (Auto) (0.0-0.2) th/mm3 WBC Differential Differential Comment Sodium (136-145) meq/L Potassium (3.5-5.1) meq/L Chloride (98-107) meq/L Carbon Dioxide (21.0-32.0) meq/L Anion Gap (5-15) meq/L BUN (7-18) mg/dL Creatinine (0.60-1.30) mg/dL Estimated GFR (>89) mL/min POC Glucose 85 (68-110) mg/dl Random Glucose (74-106) mg/dL Calcium (8.5-10.1) mg/dL Magnesium (1.5-2.5) mg/dL Total Bilirubin (0.2-1.0) mg/dL AST (15-37) U/L ALT (12-78) U/L Alkaline Phosphatase (45-117) U/L Ammonia (11-32) mcmol/L Troponin I (0.02-0.05) ng/mL Total Protein (6.4-8.2) g/dL Albumin (3.4-5.0) g/dL TSH (0.358-3.740) uIU/mL Ur Collection Type Clean catch Urine Color Yellow (Yellw/Straw) Urine Clarity Clear (Clear) Urine pH 6.0 (5.0-8.5) Ur Specific [place] 1.010 (1.002-1.035) Urine Protein Negative (Neg-Trace) mg/dL Urine Glucose (UA) Negative (Negative) mg/dL Urine Ketones 15 H (Negative) mg/dL Urine Occult Blood Negative (Negative) Urine Nitrate Negative (Negative) Urine Bilirubin Negative (Negative) Urine Urobilinogen 0.2 (Less than 2) mg/dL Ur Leukocyte Esterase Negative (Negative) Urine WBC 0-5 (0-5) /hpf Ur Squamous Epith Cells 0-5 (0-5) /hpf Urine Mucus Rare (Occasional) /lpf Micro UA Comment Culture not ind Ur Microscopic Review Microscopic reviewed Urine Culture Comments Culture not ind Urine Opiates Screen (Neg) Ur Barbiturates Screen (Neg) Ur Amphetamines Screen (Neg) U Benzodiazepines Scrn (Neg) Urine Cocaine Screen (Neg) U Cannabinoids Screen (Neg) Serum Alcohol (0-5) mg/dL Imaging Data Attestation: I personally reviewed and interpreted this imaging study as follows : Radiologist's impression: Cervical Spine CT 03/01/18 11:55 CONCLUSION: 1. Degenerative changes in the cervical spine as above. No acute fracture or destructive lesion is identified. 2. 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 Chest X-Ray 03/01/18 11:55 CONCLUSION: Negative examination. Head CT 03/01/18 11:55 CONCLUSION: 1. Encephalomalacic area of infarct involving the watershed distribution posteriorly on the right. 2. No acute abnormality identified. . ECG Data EKG Prior to Arrival: No Attestation: I personally reviewed and interpreted this ECG as follows: (Sinus bradycardia at a rate of [address] or T wave changes.) Discharge Plan Discharge Disposition Patient Disposition: 30 Still Patient Discharge Condition Condition: Stable Discharge Details Diagnosis: Altered mental status Physicians Team ED Provider: Traci Guzman Primary Care Provider: UNKNOWN, Attending Provider: Berlin Tran Discharge Interventions Interventions: Vital Signs Last Done: 03/01/18 15:07 Status ED Status: Admitted Patient
--- NOTE | 2018-03-01 13:05 | XR ---
EXAM DATE: 03/01/2018 12:54 PM EST AGE/SEX: 57 years / Male INDICATIONS: Cough. CLINICAL DATA: This is the patient's initial encounter. Patient reports that signs and symptoms have been present for 1 day and indicates a pain score of Nonresponsive. MEDICAL/SURGICAL HISTORY: Non-responsive. Non-responsive. COMPARISON: No prior exams available for comparison. FINDINGS: A single AP view of the chest demonstrates the lungs to be symmetrically aerated without evidence of mass, infiltrate or effusion. The cardiomediastinal contours are unremarkable. Old left clavicle fra cture.. CONCLUSION: Negative examination. Electronically signed by: Juan Diego Horton MD 03/01/2018 1:04 PM EST
[2018-03-01 13:20] LABS: Bilirubin,Urine Negative (Negative); Clarity,Urine Clear (Clear); Color,Urine Yellow (Yellw/Straw); Glucose,Urine (UA) Negative (Negative); Leukocyte Esterase,Urine Negative (Negative); Nitrite,Urine Negative (Negative); Urobilinogen,Urine 0.2 mg/dL (Less than 2)
[2018-03-01 13:26] LABS: Mucus,Urine Rare /lpf (Occasional); Squamous Epithelial Cell,Urine 0-5 /hpf (0-5); WBC,Urine 0-5 /hpf (0-5)
[2018-03-01 13:36] LABS: Amphetamine Screen,Urine Neg (Neg)
[2018-03-01 13:38] LABS: Barbiturate Screen,Urine Neg (Neg)
[2018-03-01 13:41] LABS: Cannabinoid Screen,Urine Neg (Neg); Cocaine Screen,Urine Neg (Neg)
[2018-03-01 13:51] LABS: Opiate Screen,Urine Neg (Neg)
--- NOTE | 2018-03-01 14:06 | CT ---
EXAM DATE: 03/01/2018 2:02 PM EST AGE/SEX: 57 years / Male INDICATIONS: Fell a few days ago. Altered mental status. CLINICAL DATA: This is the patient's initial encounter. Patient reports that signs and symptoms have been present for 3 days and indicates a pain score of Nonresponsive. MEDICAL/SURGICAL HISTORY: Cerebrovascular disease. Hypertension. None. RADIATION DOSE: 55.34 CTDI (mGy) ; Patient motion COMPARISON: [facility], CT BRAIN W/O CONTRAST, 07/30/2016. . TECHNIQUE: CT of the head without contrast. Using automated exposure control and adjustment of the mA and/or kV according to patient size, radiation dose was kept as low as reasonably achievable to ob tain optimal diagnostic quality images. DICOM format image data is available electronically for revi ew and comparison. FINDINGS: The exam demonstrates an old area of cortical infarct involving the watershed distribution posteriorl y on the right. There is no acute hemorrhage. There is mild colpocephalic dilation of the posterior h orn of the right lateral ventricle. No mass lesion is identified. The appearance of the posterior fossa is unremarkable. The osseous structures of the skull are intact. CONCLUSION: 1. Encephalomalacic area of infarct involving the watershed distribution posteriorly on the right. 2. No acute abnormality identified. . Electronically signed by: Lamont Shannon MD 03/01/2018 2:05 PM EST
--- NOTE | 2018-03-01 14:12 | CT ---
EXAM DATE: 03/01/2018 2:07 PM EST AGE/SEX: 57 years / Male INDICATIONS: Fell a few days ago. Altered mental status. CLINICAL DATA: This is the patient's initial encounter. Patient reports that signs and symptoms have been present for 3 days and indicates a pain score of Nonresponsive. MEDICAL/SURGICAL HISTORY: Cerebrovascular disease. Hypertension. None. RADIATION DOSE: 33.56 CTDI (mGy) ; Patient motion COMPARISON: [facility], CT CERVICAL SPINE W/O CONTRAST, 07/30/2016. . TECHNIQUE: Contiguous axial images were obtained using helical multirow detector technique. The vol umetric data was post-processed with multiplanar reconstruction in oblique axial, sagittal, and coron al planes. Using automated exposure control and adjustment of the mA and/or kV according to patient s ize, radiation dose was kept as low as reasonably achievable to obtain optimal diagnostic quality heather ges. DICOM format image data is available electronically for review and comparison. FINDINGS: Sagittal and coronal reformatted images demonstrate mild straightening of the normal cervical curve. There are severely degenerated disc at C4-5, C5-6 and C6-7. No acute fracture or destructive lesion i s identified. Axial imaging: C2-C3: The thecal sac has a normal configuration. There is no evidence of disc herniation or spinal canal stenosis. The neural foramina are patent bilaterally. C3-C4: The thecal sac has a normal configuration. There is no evidence of disc herniation or spinal canal stenosis. The neural foramina are patent bilaterally. C4-C5: There is a degenerated disc. There is mild osteophytic ridging from the vertebral endplates. The residual thecal space and foramina are adequate. There is mild facet arthritis on the right. C5-C6: There is a degenerated disc with a small broad-based disc bulge. The thecal space and foramin a are adequate. There is mild facet arthritis bilaterally. C6-C7: There is a degenerated disc. There is near complete loss of disc space height. There is osteo phytic ridging from the vertebral endplates. This just effaces the ventral thecal sac. The residual t hecal space and foramina appear adequate. There is mild facet arthritis bilaterally. C7-T1: No epidural impressions seen. CONCLUSION: 1. Degenerative changes in the cervical spine as above. No acute fracture or destructive lesion is i dentified. 2. 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 Electronically signed by: Lamont Shannon MD 03/01/2018 2:10 PM EST
[2018-03-01] MEDS ORDERED: Bisacodyl 10 MG Supp RECTAL PRN (17:00)
--- NOTE | 2018-03-01 17:14 | P.HPIM ---
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 Patient previously in normal status of health. Last ETOH use was approx 48hrs prior to admission to hospital. Patient is not able to provide reliable history consistently. At baseline patient is normal functioning. No reported drug use. Of note in 08/19 patient found on MRI with RIGHT temporal and jessie- ventricular regions of infarction after presenting with AMS. Neurology consulted and evaluated the patient during the hospitalization and he was eventually discharged with outpatient followup. In ED extensive labwork completed. EKG negative. TSH normal. Thiamine levels normal. CTH negative. Troponin level neg x 1. Medications: Thiamine 100mg qD ( never filled but prescribed) Metoprolol tartrate 25mg BID Amlodipine 10mg qD Atorvastatin 10mg QD Aspirin 325mg ( prescribed but never filled) medications confirmed via [facility]) Diagnosis (1) CVA, old, hemiparesis: (2) Smoker within last 12 months: (3) Hypertension: (4) Hypertensive urgency: (5) Rib pain on right side: (6) Fall: Inpatient Certification Inpatient Certification: I certify that the inpatient services were ordered in accordance with Medicare regulations governing the order. This includes certification that hospital inpatient services are reasonable and necessary and in the case of services not specified as inpatient-only under 42 CFR 419.22(n), that they are appropriately provided as inpatient services in accordance to with the 2-midnight benchmark under 43 CFR 412.3(e) Estimated Total Length of Stay (Days): 3 Plans for Post Hospital Care: Not yet determined Review of Systems ROS Unobtainable: unobtainable due to mental condition [facility] Medical History Medical History CVA, old, hemiparesis (Acute) HTN (hypertension) (Acute) Surgical history unknown (Acute) Social History Social History Substance History: No History of Abuse Second Hand Smoke Exposure: No Smoking Status: Heavy tobacco smoker Tobacco Type: Cigarettes How Often Do You Have a Drink Containing Alcohol: 4 or more times a week Recent Travel in [facility] within the Last 8 Weeks: No Recent Out of Country Travel within the Last 8 Weeks: No Immunization History Tetanus Immunization: Unsure Medications and Allergies Allergies Allergy/AdvReac Type Severity Reaction Status Date / Time No Known Allergies Allergy Verified 03/01/18 11:52 Home Medications Medication Instructions Recorded Confirmed Type amlodipine 03/01/18 History atorvastatin 03/01/18 03/01/18 History metoprolol tartrate 03/01/18 03/01/18 History terbinafine HCl 03/01/18 03/01/18 History Active Medications: Active Medications Al Hydroxide/Mg Hydroxide (Milk Of Wendy Liprabhjot) 30 ml PO Q12H PRN PRN Reason: Mild Constipation Bisacodyl (Dulcolax Supp) 10 mg RECTAL DAILY PRN PRN Reason: SEVERE CONSITIPATION Enoxaparin Sodium (Lovenox Inj) 30 mg SQ Q24H [facility]RISTAL Folic Acid (Folic Acid) 1 mg PO DAILY [facility] Thiamine HCl 500 mg/ Sodium (Chloride) 505 mls @ 125 mls/hr IV.SIG TID CHRISTAL Senna/Docusate Sodium (Jessie-Colace) 1 tab PO BID [facility] Sennosides (Senokot) 17.2 mg PO Q12H PRN PRN Reason: Moderate Constipation Sodium Chloride (Ns Flush) 2 ml IV.FLUSH PRN PRN PRN Reason: FLUSH AFTER USING IV ACCESS Physical Exam Vital signs: Last Vital Signs Temp 97.8 F 03/01/18 11:48 Pulse 65 03/01/18 15:46 Resp 18 03/01/18 16:35 BP 162/78 H 03/01/18 15:46 Pulse Ox 97 03/01/18 15:07 Intake & Output 02/27/18 02/28/18 03/01/18 03/02/18 06:59 06:59 06:59 06:59 Intake Total 101 / 101 Output Total 1350 / 1350 Balance -1249 / -1249 Weight 99.79 kg Gen: NAD, Altered HEENT: EOMI, PERRLA CVS: S1/S2. no murmur Resp: CTA GI: soft, non tender, non distended, no guarding or rebound ext: no calf tenderness. healing 8cm scratch, No edema Neuro: No facial droop, no slurred speech. Power 4/5 UE bilaterally. limited exam due to compliance. Results Labs CBC & Chem 7: 03/01/18 12:15 03/01/18 12:15 Imaging Impressions Cervical Spine CT 03/01/18 11:55 CONCLUSION: 1. Degenerative changes in the cervical spine as above. No acute fracture or destructive lesion is identified. 2. 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 Chest X-Ray 03/01/18 11:55 CONCLUSION: Negative examination. Head CT 03/01/18 11:55 CONCLUSION: 1. Encephalomalacic area of infarct involving the watershed distribution posteriorly on the right. 2. No acute abnormality identified. . Caprini VTE Risk Assessment Caprini VTE Risk Assessment: Moderate/High Risk (score >= 2) Caprini Risk Assessment Model: Point Value = 1 Point Value = 2 Point Value = 3 Point Value = 5 Age 41-60 Minor surgery BMI > 25 kg/m2 Swollen legs Varicose veins or History of unexplained or recurrent spontaneous Oral contraceptives or hormone replacement Sepsis (< 1 month) Serious lung disease, including pneumonia (< 1 month) Abnormal pulmonary function Acute myocardial infarction Congestive heart failure (< 1 month) History of inflammatory bowel disease Medical patient at bed rest Age 61-74 Arthroscopic surgery Major open surgery (> 45 min) Laparoscopic surgery (> 45 min) Malignancy Confined to bed (> 72 hours) Immobilizing plaster cast Central venous access Age >= 75 History of VTE Family history of VTE Factor V Leiden Prothrombin [id number] Lupus anticoagulant Anticardiolipin antibodies Elevated serum homocysteine Heparin-induced thrombocytopenia Other congenital or acquired thrombophilia Stroke (< 1 month) Elective arthroplasty Hip, pelvis, or leg fracture Acute spinal cord injury (< 1 month) Prophylaxis Regimen: Total Risk Factor Score Risk Level Prophylaxis Regimen 0-1 Low Early ambulation 2 Moderate Order ONE of the following: *Sequential Compression Device (SCD) *Heparin 5000 units SQ BID 3-4 Higher Order ONE of the following medications: *Heparin 5000 units SQ TID *Enoxaparin/Lovenox 40 mg SQ daily (WT < 150 kg, CrCl > 30 mL/min) *Enoxaparin/Lovenox 30 mg SQ daily (WT < 150 kg, CrCl > 10-29 mL/min) *Enoxaparin/Lovenox 30 mg SQ BID (WT < 150 kg, CrCl > 30 mL/min) AND/OR *Sequential Compression Device (SCD) 5 or more Highest Order ONE of the following medications: *Heparin 5000 units SQ TID (Preferred with Epidurals) *Enoxaparin/Lovenox 40 mg SQ daily (WT < 150 kg, CrCl > 30 mL/min) *Enoxaparin/Lovenox 30 mg SQ daily (WT < 150 kg, CrCl > 10-29 mL/min) *Enoxaparin/Lovenox 30 mg SQ BID (WT < 150 kg, CrCl > 30 mL/min) AND *Sequential Compression Device (SCD) Assessment and Plan (1) CVA, old, hemiparesis: Code(s): I69.359 - Hemiplegia and hemiparesis following cerebral infarction affecting unspecified side Status: Acute (2) Smoker within last 12 months: Code(s): Z87.891 - Personal history of nicotine dependence Status: Acute (3) Hypertension: Code(s): I10 - Essential (primary) hypertension Status: Acute (4) Hypertensive urgency: Code(s): I16.0 - Hypertensive urgency Status: Acute (5) Rib pain on right side: Code(s): R07.81 - Pleurodynia Status: Acute (6) Fall: Code(s): W19.XXXA - Unspecified fall, initial encounter Status: Acute Plan Neurology: AMS, RIGHT CVA stroke with residual weakness - CTH negative. - EEG r/o seizure - Thiamine supplementation 500mg IV TID x 48hrs and resume thiamine 100mg qD - folic acid 1mg qD - EKG - negative for acute pathology. Medication reconciliation completed and no causative agent identified - ammonia level Cardiology: HTN, hypertensive urgency - continue metoprolol 25mg BID, amlodipine 10mg qD - vasotech 2.5mg prn hypertension breakthrough - resume ASA 325mg qD Orthopedics: Rib pain - pain control tylenol prn Psychiatry: ETOH abuse - CIWA protocol ( treat for score > 8) - monitor amount of ativan given as per protocol ( if at all) Patient care: Smoking - nicotine patch qD - PT when stable. code: FC dvt ppx: lovenox diet: cardiac dispo: medicine service Attempted to contact Danuta cole but no answer. will re-call [phone]
[2018-03-01] MEDS ORDERED: LORazepam 1 MG Tablet PO PRN (17:48)
[2018-03-01] MEDS ORDERED: Haloperidol Inj 5 MG/ML Ampul IV.PUSH PRN (17:48)
[2018-03-01] MEDS: Folic Acid 1 MG Tablet PO SCH (17:59)
[2018-03-01] MEDS: Enoxaparin Inj 30 MG/0.3 ML Syringe SQ SCH (17:59)
[2018-03-01] MEDS ORDERED: Acetaminophen 325 MG Tablet PO PRN (18:00)
[2018-03-01] MEDS: amLODIPine 10 MG Tablet PO SCH (18:02)
[2018-03-01] MEDS: Thiamine Inj 500 MG in Sodium Chlor 0.9% Inj 500 ML IV.SIG SCH (19:45)
[2018-03-01] MEDS ORDERED: Metoprolol Tartrate 50 MG Tablet PO SCH (21:00)
[2018-03-01] MEDS: Senna/Docusate Sodium 8.6/50 MG Tablet PO SCH (21:13)
[2018-03-01] MEDS: Metoprolol Tartrate 50 MG Tablet PO SCH (21:13)
[2018-03-02 05:14] LABS: Baso % (Auto) 0.3 % (0.0-2.0); Eos # (Auto) 0.2 th/mm3 (0.0-0.4); Eos % (Auto) 3.1 % (0.0-4.0); Hematocrit 41.2 % (39.0-51.0); Lymph # (Auto) 1.8 th/mm3 (1.0-4.8); Lymph % (Auto) 28.9 % (9.0-44.0); Mean Corpuscular Hemoglobin 30.4 pg (27.0-34.0); Mean Corpuscular Volume 89.3 fL (80.0-100.0); Mean Platelet Volume 8.1 fL (7.0-11.0); Mono # (Auto) 0.8 th/mm3 (0.0-0.9); Mono % (Auto) 12.1 % (0.0-8.0); Neut # (Auto) 3.5 th/mm3 (1.8-7.7); Neut % (Auto) 55.6 % (16.0-70.0); Platelet Count 194 th/mm3 (150-450); Red Blood Count 4.61 mil/mm3 (4.50-5.90); Red Cell Distribution Width 12.1 % (11.6-17.2); White Blood Count 6.3 th/mm3 (4.0-11.0)
[2018-03-02 05:21] LABS: Chloride 109 meq/L (98-107); Potassium 3.6 meq/L (3.5-5.1); Sodium 142 meq/L (136-145)
[2018-03-02 05:23] LABS: INR 1.1 Ratio; Prothrombin Time 11.3 sec (9.8-11.6)
[2018-03-02 05:26] LABS: Calcium 8.2 mg/dL (8.5-10.1)
[2018-03-02 05:27] LABS: Albumin 3.3 g/dL (3.4-5.0); Anion Gap 7 meq/L (5-15); Blood Urea Nitrogen 10 mg/dL (7-18); Carbon Dioxide 25.6 meq/L (21.0-32.0); Glucose,Random 85 mg/dL (74-106)
[2018-03-02 05:30] LABS: Alanine Aminotransferase 22 U/L (12-78); Aspartate Aminotransferase 9 U/L (15-37); Glomerular Filtration Rate Greater Than 89 mL/min (>89)
[2018-03-02 05:32] LABS: Total Protein 6.4 g/dL (6.4-8.2)
[2018-03-02 05:33] LABS: Alkaline Phosphatase 59 U/L (45-117)
[2018-03-02] MEDS: Senna/Docusate Sodium 8.6/50 MG Tablet PO SCH ×2 (08:07→20:23)
[2018-03-02] MEDS: Metoprolol Tartrate 50 MG Tablet PO SCH ×2 (08:07→20:22)
[2018-03-02] MEDS: amLODIPine 10 MG Tablet PO SCH (08:07)
[2018-03-02] MEDS: Folic Acid 1 MG Tablet PO SCH (08:07)
[2018-03-02] MEDS: Thiamine Inj 500 MG in Sodium Chlor 0.9% Inj 500 ML IV.SIG SCH ×3 (10:12→17:35)
[2018-03-02] MEDS ORDERED: Lidocaine 5% Patch T-DERMAL ONE (10:25)
[2018-03-02] MEDS ORDERED: Benzonatate 100 MG Capsule PO PRN (10:30)
--- NOTE | 2018-03-02 10:30 | P.PNIM ---
Subjective Interval history: note to document events from 03/02 NAD overnight mentation much improved last 24hrs and almost near baseline. no palpitations knows name, location today Physical Exam Vital signs: Last Vital Signs Temp 97.2 F L 03/02/18 07:15 Pulse 68 03/02/18 07:15 Resp 20 03/02/18 08:07 BP 169/89 H 03/02/18 07:15 Pulse Ox 95 03/02/18 04:00 Intake & Output 02/28/18 03/01/18 03/02/18 03/03/18 06:59 06:59 06:59 06:59 Intake Total 1086 / 1086 Output Total 2300 / 2300 Balance -1214 / -1214 Weight 99.8 kg gen: nad heent: eomi, heent cvs: s1/s2. no m/r/g resp: CTA without wheeze gi: soft, non tender, non distended, no guarding or rebound ext: no edema, no calf tenderness neuro: no facial droop, no slurred speech, power 4/5 bilaterally U/E Results Labs CBC & Chem 7: 03/02/18 04:35 03/02/18 04:35 Imaging Imaging: Impressions Cervical Spine CT 03/01/18 11:55 CONCLUSION: 1. Degenerative changes in the cervical spine as above. No acute fracture or destructive lesion is identified. 2. 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 Chest X-Ray 03/01/18 11:55 CONCLUSION: Negative examination. Head CT 03/01/18 11:55 CONCLUSION: 1. Encephalomalacic area of infarct involving the watershed distribution posteriorly on the right. 2. No acute abnormality identified. . Assessment and Plan (1) CVA, old, hemiparesis: Code(s): I69.359 - Hemiplegia and hemiparesis following cerebral infarction affecting unspecified side Status: Acute (2) Smoker within last 12 months: Code(s): Z87.891 - Personal history of nicotine dependence Status: Acute (3) Hypertension: Code(s): I10 - Essential (primary) hypertension Status: Acute (4) Hypertensive urgency: Code(s): I16.0 - Hypertensive urgency Status: Acute (5) Rib pain on right side: Code(s): R07.81 - Pleurodynia Status: Acute (6) Fall: Code(s): W19.XXXA - Unspecified fall, initial encounter Status: Acute Plan Neurology: AMS, RIGHT CVA stroke with residual weakness - CTH negative. - EEG reviewed. - thiamine 100mg qD - folic acid 1mg qD - EKG - negative for acute pathology. Medication reconciliation completed and no causative agent identified Cardiology: HTN, hypertensive urgency - continue metoprolol 25mg BID, amlodipine 10mg qD - vasotech 2.5mg prn hypertension breakthrough - resume ASA 325mg qD Orthopedics: Rib pain - pain control tylenol prn Psychiatry: ETOH abuse - CIWA protocol ( treat for score > 8) - monitor amount of ativan given as per protocol ( if at all) Patient care: Smoking - nicotine patch qD - PT when stable. code: FC dvt ppx: lovenox diet: cardiac dispo: medicine service Attempted to contact Danuta cole but no answer. will re-call [phone] Progress Note: Quality VTE Deep Vein Thrombosis/Pulmonary Embolism Present on Admission: No
--- NOTE | 2018-03-02 12:44 | ECG ---
Date Performed: 03/01/2018 Time Performed: 12:12:17 PTAGE: 57 years EKG: SINUS BRADYCARDIA BORDERLINE ECG PREVIOUS TRACING : 07/30/2016 16.43 DOCTOR: Jean Pierre Pillai Interpretating Date/Time 03/02/2018 12:42:33
--- NOTE | 2018-03-02 16:08 | MG ---
cc: Della Lewis MD AGE: [age] years old. EEG NUMBER: [facility] [id number] REFERRING: Marc. ROOM: 8301 TECHNIQUE: Awake, drowsy, asleep with photic done. CT shows encephalomalacia on posterior right hemisphere. A 57-year-old patient with change in mental status, daily consumption of alcohol, stopped drinking a few days prior, came in with some chest pain status post a fall a couple of days ago. MEDICATIONS: 1. Norvasc. 2. Lipitor. 3. Lopressor. 4. Folic acid. 5. Thiamine. DESCRIPTION OF RECORD: The patient exhibits slowing of background throughout, predominantly of 2-3 Hz, 4 Hz variable. No evidence of any epileptiform features. There is a washcloth over the patient's eyes. Hyperventilation was not performed. Photic stimulation elicits a mild driving response. IMPRESSION: Abnormal electroencephalogram due to mild slowing of background consistent with what looks like encephalopathic process. No evidence of epileptic activity. Clinical correlation. Della Lewis MD DF/ct , 02:50 PM , 02:56 PM
[2018-03-02] MEDS: Enoxaparin Inj 30 MG/0.3 ML Syringe SQ SCH (17:35)
[2018-03-03 04:49] VITALS: O2SAT 97
[2018-03-03 07:30] VITALS: PULSE 66; RESP 20; TEMP 97
--- NOTE | 2018-03-03 07:50 | P.DS ---
DS: Providers Date of admission: 03/01/18 15:41 Patient presented to ED for AMS where the following treatments and services were provided in his care. Patients family contacted for collateral and patient has tendency to take multiple OTC medications on his own including sleeping pills and caffeine pills. On day of presentation patient found in house altered and the house completely messed up. Patient reportedly consumed ETOH in the days prior to ETOH and there was concern for possible withdrawal. Patient placed on CIWA protocol while hospitalized and restarted on thiamine and folic acid which patient was not taking previously as prescribed. Patient mentation clinically improved during hospitalization. CTH was negative. Patient previously known to have stroke and EEG obtained showed no new evidence of seizure like activity. BG levels normal. Patient clinically improved and suspect that multiple medication use lead to altered mentation causing hospitalization. On discharge patient to follow up with a PMD and neurologist for routine monitoring following his prior stroke. Patient encouraged to continue all prescribed medication under a MD guidance and to continue ASA OTC as prescribed on prior admission. Patient was evaluated by physical therapy and does not require any additional services on the outpatient side including rehab. His blood pressure medications at home. Instructed patient that he should follow-up within 7 days with a primary medical doctor to continue receiving prescriptions for blood pressure medications as an outpatient. Patient verbalized understanding Primary care physician: UNKNOWN DS: Diagnosis Discharge Diagnosis (1) CVA, old, hemiparesis: Status: Acute (2) Smoker within last 12 months: Status: Acute (3) Hypertension: Status: Acute (4) Hypertensive urgency: Status: Acute (5) Rib pain on right side: Status: Acute (6) Fall: Status: Acute DS: Summary Patient presented to ED for AMS where the following treatments and services were provided in his care. Patients family contacted for collateral and patient has tendency to take multiple OTC medications on his own including sleeping pills and caffeine pills. On day of presentation patient found in house altered and the house completely messed up. Patient reportedly consumed ETOH in the days prior to ETOH and there was concern for possible withdrawal. Patient placed on CIWA protocol while hospitalized and restarted on thiamine and folic acid which patient was not taking previously as prescribed. Patient mentation clinically improved during hospitalization. CTH was negative. Patient previously known to have stroke and EEG obtained showed no new evidence of seizure like activity. BG levels normal. Patient clinically improved and suspect that multiple medication use lead to altered mentation causing hospitalization. On discharge patient to follow up with a PMD and neurologist for routine monitoring following his prior stroke. Patient encouraged to continue all prescribed medication under a MD guidance and to continue ASA OTC as prescribed on prior admission. Patient was evaluated by physical therapy and does not require any additional services on the outpatient side including rehab. His blood pressure medications at home. Instructed patient that he should follow-up within 7 days with a primary medical doctor to continue receiving prescriptions for blood pressure medications as an outpatient. Patient verbalized understanding Time Spent with Patient Total time spent providing and/or coordinating discharge services: > 30 minutes Quality: VTE Deep Vein Thrombosis/Pulmonary Embolism Present on Admission: No Exam Narrative Exam Narrative: Gen: NAD, conversational HEENT: EOMI, PERRLA CVS: S1/S2. RRR. no m/r/g Resp: CTA bilaterally GI: soft, non tender, non distended, no guarding or rebound Neuro: Power 4/5 throughout all extremities. Sensation intact. Ambulated personally with patient around room and he was able to walk without drifting or other signs of instability. Results Labs on day of discharge: Labs from last 24 hours 03/03/18 03/03/18 07:40 01:36 POC Glucose 100 84 Impressions ITS Impressions Cervical Spine CT 03/01/18 11:55 CONCLUSION: 1. Degenerative changes in the cervical spine as above. No acute fracture or destructive lesion is identified. 2. 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 Chest X-Ray 03/01/18 11:55 CONCLUSION: Negative examination. Head CT 03/01/18 11:55 CONCLUSION: 1. Encephalomalacic area of infarct involving the watershed distribution posteriorly on the right. 2. No acute abnormality identified. . Discharge Plan Discharge Disposition Patient Disposition: Discharge Home Discharge Condition Condition: Stable Discharge Order Discharge Orders: Discharge Order (Routine); Ordered 03/03/18 Ordered By: Berlin Tran Discharge Details Anticipated Discharge Date: 03/03/18 Discharge Comment: follow up outpatient with PMD Follow up outpatient with Neurology Physicians Team Primary Care Provider: UNKNOWN, Attending Provider: Berlin Tran Rxs /Orders / Referrals /Forms Prescriptions: New folic acid 1 mg Tablet 1 mg PO DAILY 30 Days Qty: 30 RF: 0 thiamine HCl (vitamin B1) 100 mg tablet 100 mg PO DAILY 30 Days Qty: 30 RF: 0 Continue amlodipine 10 mg tablet RF: 0 atorvastatin 10 mg tablet RF: 0 metoprolol tartrate 25 mg tablet RF: 0 terbinafine HCl 250 mg tablet RF: 0 Referrals: UNKNOWN, [Primary Care Provider] - See Instructions (See instructions ) Discharge Instructions Patient Printed Instructions: Thiamine (By mouth), Folic Acid (By mouth), Abuse of Alcohol (GEN), Chronic Hypertension (DC) Additional Instructions: follow up PMD within 7 days Status ED Status: Left Department
[2018-03-03] MEDS: Metoprolol Tartrate 50 MG Tablet PO SCH (08:42)
[2018-03-03] MEDS: Folic Acid 1 MG Tablet PO SCH (08:42)
[2018-03-03] MEDS: amLODIPine 10 MG Tablet PO SCH (08:42)
[2018-03-03] MEDS: Senna/Docusate Sodium 8.6/50 MG Tablet PO SCH (08:44)
[2018-03-03] MEDS: Thiamine Inj 500 MG in Sodium Chlor 0.9% Inj 500 ML IV.SIG SCH (08:46)
[2018-03-03 10:49] VITALS: BP 146/93
== END 2018-03-03 13:09 | disposition home or self-care (01) ==
LOC: PHED 11:46 → PHEDA 15:41 → PH3 16:37
PROVIDERS: ADMIT Internal Medicine; ATTEND Internal Medicine
DX: I69.354 Hemiplegia and hemiparesis following cerebral infarction affecting left non-dominant side; M54.9 Dorsalgia, unspecified; I10 Essential (primary) hypertension; Z79.899 Other long term (current) drug therapy; W19.XXXA Unspecified fall, initial encounter; F10.10 Alcohol abuse, uncomplicated; I16.0 Hypertensive urgency; G89.29 Other chronic pain; F17.210 Nicotine dependence, cigarettes, uncomplicated; R07.81 Pleurodynia; R41.82 Altered mental status, unspecified